=== PATIENT | male | born 1950 | race Caucasian/White ===

== ENCOUNTER → 2016-07-13 | Outpatient (CLI) | payer MEDICARE, OTHER ==
[~2016-07-13] MED LIST: ALPR.25T PO; ASCO500C14 PO; ASP81TEC PO; ATR20T PO; DESL5TAB5 PO; FLAX100031 PO; HCT25T PO; METF-380 PO; MULT1CAP27 PO; RAMI10CA PO
--- NOTE | 2016-07-15 10:27 | ECHOCARDIOGRAPHY REPORT ---
DATE OF SERVICE: 07/13/2016 ORDERING PHYSICIAN: Dr. Ruano. PRIMARY CARE PHYSICIAN: Dr. Rodriguez. CLINICAL DIAGNOSES: Aortic stenosis, cardiomegaly, hypertension. MEASUREMENTS: 1. Aortic root 2.8. 2. IVS thickness, diastolic 1.3. 3. LVPW thickness, diastolic, 1.4. 4. LV diameter, diastolic, 5. 5. Left atrium 3.9. DESCRIPTION: Two-dimensional echocardiography shows normal global left ventricular systolic function with normal regional wall motion. There is mild concentric left ventricular hypertrophy. The left ventricular ejection fraction is approximately 65%. Mitral and tricuspid valve leaflets show good leaflet excursion. The aortic valve appears to be trileaflet, and there is mild to moderate aortic valve sclerosis and calcification. Doppler imaging shows trivial mitral and tricuspid regurgitation. There is trivial aortic regurgitation. There is no evidence of significant intracardiac shunt on this transthoracic echocardiographic study. Inferior vena cava does not appear to be significantly dilated. It does seem to have inspiratory collapse. The peak pressure gradient across the aortic valve is 37 mmHg with a mean gradient of 21 mmHg and the aortic valve area is calculated to be 1.5 cm2. Pulmonary artery systolic pressure is estimated to be approximately 25 mmHg. CONCLUSIONS: 1. Aortic stenosis, mild to moderate, with a valve area of approximately 1.5 cm2 and a mean gradient across the aortic valve approximately 21 mmHg. 2. Mild concentric left ventricular hypertrophy. 3. Normal global left ventricular systolic function with an ejection fraction of approximately 65%. 4. Trivial mitral, tricuspid and aortic regurgitation. 5. Pulmonary artery systolic pressure is estimated at approximately 25 mmHg. Job ID: [id number] DocumentID: [id number] Dictated Date: 07/14/2016 16:54:12 Manager Rail Date: 07/15/2016 08:54:23 Dictated By: SILVIA RUANO MD, MA, FACP, FACC,
== END ==
LOC: CARD 13:57
PROVIDERS: ATTEND Internal Medicine Cardiovascular Disease
DX: I35.0 Nonrheumatic aortic (valve) stenosis (principal); I51.7 Cardiomegaly; I65.23 Occlusion and stenosis of bilateral carotid arteries; E11.9 Type 2 diabetes mellitus without complications; E78.4 Other hyperlipidemia; I10 Essential (primary) hypertension; E66.09 Other obesity due to excess calories
CPT/HCPCS: 93306

== ENCOUNTER → 2019-09-08 | Outpatient (CLI) | payer MEDICARE, OTHER | LOC: CARD 09:32 | PROVIDERS: ATTEND Nurse Practitioner Family | DX: I35.0 Nonrheumatic aortic (valve) stenosis (principal); I51.7 Cardiomegaly; I35.1 Nonrheumatic aortic (valve) insufficiency | CPT/HCPCS: 93306 ==

== ENCOUNTER → 2021-01-29 | Outpatient (CLI) | payer MEDICARE, OTHER | LOC: CARD 15:00 | PROVIDERS: ATTEND Nurse Practitioner | DX: I08.0 Rheumatic disorders of both mitral and aortic valves (principal) | CPT/HCPCS: 93306 ==

== ENCOUNTER 2021-04-08 10:13 | Day surgery (SDC) | payer MEDICARE, OTHER ==
[~2021-04-08] VITALS: Ht 180.3 cm; Wt 110.0 kg
[2021-04-08] VITALS (9 sets, daily range): BP systolic 141–156; BP diastolic 55–72
[2021-04-08] MEDS ORDERED: LIDOCAINE 1% INJ 20 ML VIAL ONE (10:38)
[2021-04-08] MEDS ORDERED: NS IV 1000 ML 1,000 ML ONE (10:38)
[2021-04-08] MEDS ORDERED: HEParin (CATH LAB) 2,000 ML IV ONE (10:38)
[2021-04-08] MEDS ORDERED: NS IV 1000 ML 1,000 ML IV SCH ×2 (10:45→15:15)
[2021-04-08 11:03] LABS: HEMATOCRIT 45 % (40-54); MEAN CORPUSCULAR HEMOGLOBIN 32 pg (25-34); MEAN CORPUSCULAR HGB CONC 34 g/dL (32-36); MEAN CORPUSCULAR VOLUME 95 fL (80-99); MEAN PLATELET VOLUME 10.8 fL (9.0-12.2); PLATELET COUNT 202 10^3/uL (130-400); WHITE BLOOD COUNT 5.6 10^3/uL (4.3-11.0)
[2021-04-08] MEDS ORDERED: RT-ALBUINH IH (11:10)
[2021-04-08] MEDS ORDERED: AMLO-251 PO (11:10)
[2021-04-08] MEDS ORDERED: FLUT9.9S NS (11:10)
[2021-04-08] MEDS ORDERED: CLOP75TA69 PO (11:10)
[2021-04-08] MEDS ORDERED: TIZA4CAP8 PO (11:10)
[2021-04-08] MEDS ORDERED: CALC-250 PO (11:10)
[2021-04-08] MEDS ORDERED: SERT-413 PO (11:10)
[2021-04-08] MEDS ORDERED: CETI-267 PO (11:10)
[2021-04-08 11:21] LABS: INR 0.9 (0.8-1.4); PROTHROMBIN TIME PATIENT 12.7 SEC (12.2-14.7)
[2021-04-08 11:31] LABS: ALBUMIN 4.1 GM/DL (3.2-4.5); BILIRUBIN,TOTAL 0.5 MG/DL (0.1-1.0); CALCIUM 9.3 MG/DL (8.5-10.1); CREATININE SERUM 0.98 MG/DL (0.60-1.30); POTASSIUM 4.6 MMOL/L (3.6-5.0); TOTAL PROTEIN 7.1 GM/DL (6.4-8.2)
[2021-04-08] MEDS ORDERED: fentaNYL INJ 100 MCG/2 ML AMP ONE (13:40)
[2021-04-08] MEDS ORDERED: MIDAZOLAM 5 MG/5 ML (VERSED) VIAL ONE (13:40)
--- NOTE | 2021-04-08 15:11 | Cardiac Procedure Note-CS/ASA ---
Pre-Procedure Note Pre-Op Procedure Note H&P Reviewed The H&P was reviewed, patient examined and no changes noted. Date H&P Reviewed: Apr 08, 2021 Time H&P Reviewed: 14:10 Conscious Sedation Pre-Proced Time 14:10 ASA Score 3 For ASA 3 and 4: Consider anesthesia and medical clearance. Also, for patients with a history of failed moderate sedation consider anesthesia. Airway Lungs Heart ASA score ASA 1: a normal healthy patient ASA 2: a patient with a mild systemic disease (mid diabetes, controlled hypertension, obesity ASA 3: a patient with a severe systemic disease that limits activity (angina, COPD, prior Myocardial infarction) ASA 4: a patient with an incapacitating disease that is a constant threat to life (CHF, renal failure) ASA 5: a moribund patient not expected to survive 24 hrs. (ruptured aneurysm) ASA 6: a declared brain- patient whose organs are being harvested. For emergent operations, add the letter E after the classification Mallampati Classification Grade 2 Sedation Plan Analgesia, Amnesia, Plan communicated to team members, Discussed options with patient/fam, Discussed risks with patient/fam The patient is an appropriate candidate to undergo the planned procedure, sedation, and anesthesia. The patient immediately re-assessed prior to indication. SILVIA PARRISH MD FACP FAC [facility]S Apr 08, 2021 15:11
--- NOTE | 2021-04-08 15:13 | Discharge Inst-Cardiology ---
Discharge Inst-Cardiac Discharge Medications Continued Medications: Albuterol Sulfate (Proair Hfa) 1 Puff Puff 2 PUFF IH PRN, EA 1 PUFF = 90 MCG Alprazolam (Xanax) 0.25 Mg Tablet 1 TAB PO QID PRN TAKES FOR ANXIETY CONTROL Amlodipine Besylate (Amlodipine Besylate) 10 Mg Tablet 10 MG PO DAILY, TAB Aspirin (Aspirin Ec 81 Mg) 81 Mg Tabec 81 MG PO DAILY Atorvastatin (Lipitor 20MG) 20 Mg Tablet 20 MG PO HS Cetirizine HCl (Zyrtec) 10 Mg Tab.rapdis 10 MG PO DAILY, TAB Cholecalciferol (Vitamin D3) (Vitamin D3) 125 Mcg Tablet 125 MCG PO DAILY, TAB Clopidogrel Bisulfate (Plavix) 75 Mg Tablet 75 MG PO DAILY, TAB Fluticasone Propionate (Flonase Allergy Relief) 9.9 Ml Osteen.susp 2 SPRAY NS DAILY PRN for PRN Multivitamins (Multivitamins) 1 Each Capsule 1 EACH PO DAILY Ramipril (Ramipril) 10 Mg Capsule 10 MG PO BID Sertraline HCl (Sertraline HCl) 50 Mg Tablet 50 MG PO DAILY, TAB Tizanidine HCl (Tizanidine HCl) 4 Mg Capsule 4 MG PO HS, CAP Discontinued Medications: Metformin Hcl (Metformin 1000 Mg) 1,000 Mg Tablet 1000 MG PO BID WITH MEALS Patient Instructions Patient Instructions: Resume METFORMIN at previous home dose beginning on the morning of 04/11/21 SILVIA PARRISH MD FACP [facility] Apr 08, 2021 15:13
[2021-04-08] MEDS ORDERED: PATIENT MAY USE OWN MEDS, ALL PO SCH (15:15)
--- NOTE | 2021-04-08 15:24 | Discharge Inst-Post CATH ---
Discharge Inst-CATH/EP Post Cardiac Cath/EP D/C Inst Follow Up/Plan F/u with Dr Ruano in 1-2 weeks ACTIVITY * Go Home directly and rest. * Limit activity of the leg (or wrist if it was used) for 7 days including aerobics, swimming, jogging, bicycling, etc. * Restrict stair-climbing for 7 days if possible, if not, climb up with your non-cath leg, then bring together on the same step. * Avoid lifting, pushing, pulling or excessive movement of the affected extremity for 7 days. * Customary sexual activity may be resumed after 2 days-use caution not to use a position that strains or causes pain to the affected extremity. * No driving for 24 hours. * NO SMOKING. * Avoid straining for bowel movements for 7 days. * Gentle walking on level ground is allowed. * Returning to work will depend on the type of procedure and the results. Your doctor will discuss this with you. CALL YOUR DOCTOR FOR ANY OF THE FOLLOWING: *If bleeding from the puncture site occurs- Apply gentle pressure to site with clean cloth and call your doctor or EMS. * If a knot or lump forms under the skin, increases in size, or causes pain. * If bruising appears to be worsening or moving further down your leg instead of disappearing. * Temperature above 101 F. CARE OF YOUR GROIN INCISION; * Bruising or purple discoloration of the skin near the puncture site is common. * You may shower only, no bathtub bathing for 5 days. Be careful to avoid slipping as your leg may feel stiff. * If a closure device was used on your femoral artery, please see the attached guide regarding care of the device and your leg. * Leave dressing on FOR 24 hours. CARE OF YOUR WRIST INCISION; * Bruising or purple discoloration of the skin near the puncture site is common. * You may shower. * DO NOT submerge wrist. * Leave dressing on FOR 24 hours. SILVIA RUANO MD FACP FAC CCDS Apr 08, 2021 15:24
--- NOTE | 2021-04-08 17:46 | CARDIAC CATHETERIZATION ---
DATE OF SERVICE: 04/08/2021 CARDIAC CATHETERIZATION REPORT The patient is a 70-year-old gentleman who is known to have severe carotid arterial disease, for which he is awaiting intervention in [place], [place], with Dr. Collier. Because of his history of coronary artery disease and aortic stenosis, anesthesia had advised cardiac catheterization prior to carotid intervention. The procedure was carried out today after having obtained an informed consent. DESCRIPTION OF PROCEDURE: He was brought to the cardiac catheterization laboratory in a fasting state. Right groin was prepared and draped in the usual sterile fashion. Lidocaine 1% was used for local anesthesia. Modified Seldinger technique was used to advance a 5-Bangladeshi sheath in the right femoral artery and a 7-Bangladeshi sheath into the right femoral vein. A 7-Bangladeshi [place]dy catheter was used to carry out right heart catheterization and to measure oxygen saturation in the various right heart chambers. The [place]-Cyndy catheter was then removed. We used a 5-Bangladeshi pigtail catheter to carry out left heart catheterization. Pullback was performed. The catheter was then removed. We carried out coronary angiography using JL4 catheter for the left coronary system and 5-Bangladeshi JR4 catheter was used for right coronary system. Angiography of the right femoral artery was carried out through the sheath. Mynx was used to achieve arterial hemostasis. Manual pressure was used to achieve venous hemostasis. He tolerated the procedure well. HEMODYNAMICS: Pulmonary artery pressure was 45/18 with a mean of 25 mmHg. Mean pulmonary wedge pressure was 19 mmHg. Mean right atrial pressure was 12 mmHg. Right ventricular pressure was 49/13. Left ventricular end-diastolic pressure was 26 mmHg. There was approximately 15 to 20 mm pressure gradient on pullback across the aortic valve. Aortic valve area was calculated to be approximately 1.28 cm2. Cardiac output by thermodilution was 4.23 with a cardiac index of 1.85. Pulmonary vascular resistance was 1.33 Wood units. LEFT VENTRICULAR ANGIOGRAPHY: Left ventricular angiography was carried out in the right anterior oblique projection. Global left ventricular systolic function is well preserved. Left ventricular ejection fraction is approximately 50% to 55%. There was mild to moderate catheter-induced mitral regurgitation. CORONARY ANGIOGRAPHY: Left main coronary artery, left anterior descending, left circumflex and right coronary arteries exhibit mild coronary plaque. There does not appear to be significant obstructive coronary artery disease. CONCLUSIONS: 1. Mild coronary artery disease. 2. Mild pulmonary hypertension. 3. Moderate aortic stenosis with a valve area approximately 1.28 cm2 and xtat-up-abxr pressure gradient of 20 mmHg. DISCUSSION AND RECOMMENDATIONS: Based on the results of the study, cardiac risk for noncardiac surgery is estimated to be intermediate. This has been reviewed with him and his family. The results of the cardiac catheterization are being forwarded to the anesthesiology service at [facility] in [place], [place]. Job ID: [id number] DocumentID: [id number] Dictated Date: 04/08/2021 15:22:43 Fruit Pitter Date: 04/08/2021 17:45:42 Dictated By: SILVIA PARRISH MD, MA, FACP, FACC,
== END 2021-04-08 18:30 | disposition home or self-care (01) ==
LOC: CATH 10:13
PROVIDERS: ATTEND Internal Medicine Cardiovascular Disease
DX: I25.10 Atherosclerotic heart disease of native coronary artery without angina pectoris (principal); I27.20 Pulmonary hypertension, unspecified; I35.0 Nonrheumatic aortic (valve) stenosis; I65.23 Occlusion and stenosis of bilateral carotid arteries; G47.33 Obstructive sleep apnea (adult) (pediatric); I11.9 Hypertensive heart disease without heart failure; E11.9 Type 2 diabetes mellitus without complications; E66.9 Obesity, unspecified; Z68.33 Body mass index [BMI] 33.0-33.9, adult; Z87.891 Personal history of nicotine dependence; Z79.84 Long term (current) use of oral hypoglycemic drugs; Z79.899 Other long term (current) drug therapy; Z79.82 Long term (current) use of aspirin
CPT/HCPCS: 80053; 80061; 85027; 85610; 85730; 87081; 93460; C1894 ×2; 36415

== ENCOUNTER 2021-10-01 05:57 | Outpatient (CLI) | payer MEDICARE, OTHER ==
[~2021-10-01] VITALS: Ht 180.3 cm; Wt 109.1 kg
[~2021-10-01 05:57] MED LIST changes: +AMLO-251 PO; +CALC-250 PO; +CETI-267 PO; +CLOP75TA69 PO; +FLUT9.9S NS; +RT-ALBUINH IH; +SERT-413 PO; +TIZA4CAP8 PO
[2021-10-06] MEDS ORDERED: TRZ50T PO (10:01)
[2021-10-06] MEDS ORDERED: METF-399 PO (10:01)
== END 2021-10-06 10:08 | disposition home or self-care (01) ==
LOC: PREOP 05:57
PROVIDERS: ATTEND Orthopaedic Surgery
DX: Z01.818 Encounter for other preprocedural examination (principal)

== ENCOUNTER 2021-10-08 07:21 | Day surgery (SDC) | payer MEDICARE, OTHER ==
--- NOTE | 2021-09-30 20:32 | HISTORY AND PHYSICAL ---
DATE OF SERVICE: ADMISSION HISTORY AND PHYSICAL This will be for outpatient surgery on 10/08/2021 for right rotator cuff repair. HISTORY OF PRESENT ILLNESS: The patient is a 71-year-old right hand dominant gentleman who had previously undergone right rotator cuff repair and has been doing well until he fell in the spring. Since then, he has had weakness and activity limitations in the shoulder on the right arm, he reports pain. An MRI revealed a large supraspinatus and infraspinatus tear. Due to functional impairment and failure to improve with conservative measures, the patient elected to proceed with surgical intervention. REVIEW OF SYSTEMS: No chest pain, no shortness of breath, no dysuria. PAST MEDICAL HISTORY: Aortic stenosis, diabetes mellitus, basal cell carcinoma of the ear, hypercholesterolemia, hyperlipidemia, obesity, coronary artery disease, cardiomegaly, orthostatic hypotension, RACHEL. PAST SURGICAL HISTORY: Left total knee arthroplasty, right rotator cuff and right knee scope. FAMILY HISTORY: Significant for diabetes and stroke. PRIMARY CARE PROVIDER: Dr. Rodriguez. MEDICATIONS: Vitamin D, Ventolin, tizanidine, sertraline, Flonase, atorvastatin, amlodipine, metformin, aspirin, alprazolam, ramipril, Zyrtec, Plavix. ALLERGIES: No known drug allergies. SOCIAL HISTORY: The patient is a former tobacco smoker. Denies alcohol use. PHYSICAL EXAMINATION: GENERAL: The patient is a well-developed, well-nourished, in no acute distress. HEENT: Normocephalic, atraumatic. Pupils are equal, round and reactive to light. Oropharynx is clear. NECK: Supple, no lymphadenopathy. LUNGS: Clear to auscultation bilaterally. HEART: Regular rate and rhythm. ABDOMEN: Soft, nontender, nondistended. EXTREMITIES: Right shoulder demonstrates active forward elevation, external and internal rotation, which is symmetric to the contralateral side, but he has marked weakness with abduction and external rotation and pain is elicited with resistance. IMPRESSION: Right rotator cuff tear. PLAN: Right shoulder arthroscopic acromioplasty and open rotator cuff repair. The risks, benefits, options, ramifications and recovery have been discussed at length with the patient. He understands and wishes to proceed. Job ID: [id number] DocumentID: [id number] Dictated Date: 09/23/2021 11:15:44 Hydraulic Mechanic Date: 09/23/2021 11:27:28 Dictated By: SULTANA AGRAWAL MD
[~2021-10-08] VITALS: Ht 180.3 cm; Wt 109.1 kg
[2021-10-08] VITALS (10 sets, daily range): BP systolic 118–156; BP diastolic 59–89
[~2021-10-08 07:21] MED LIST changes: +METF-399 PO; +TRZ50T PO
[2021-10-08] MEDS ORDERED: oxyCODONE/APAP 5/325MG (PERCOCET 5) TABLET PO PRN (07:30)
--- NOTE | 2021-10-08 07:30 | Progress Note-Pre Operative ---
Pre-Operative Progress Note H&P Reviewed The H&P was reviewed, patient examined and no changes noted. Date Seen by Provider: Oct 08, 2021 Time Seen by Provider: 07:30 Date H&P Reviewed: Oct 08, 2021 Time H&P Reviewed: 07:11 Pre-Operative Diagnosis: right rotator cuff tear SULTANA AGRAWAL MD Oct 08, 2021 07:30
--- NOTE | 2021-10-08 07:31 | Progress Note-Post Operative ---
Post-Operative Progess Note Surgeon (s)/Commercial Engineer (s) Surgeon SULTANA AGRAWAL MD Commercial Engineer: Edwin Gan Pre-Operative Diagnosis right rotator cuff tear Post-Operative Diagnosis right rotator cuff tear Procedure & Operative Findings Date of Procedure 10/08/21 Procedure Performed/Findings right shoulder arthroscopic acromiplasty and open rotator cuff tear Anesthesia Type GETA Estimated Blood Loss Estimated blood loss (mL): minimal Specimens/Packing Specimens Removed none Packing: none SULTANA AGRAWAL MD Oct 08, 2021 07:31
[2021-10-08] MEDS ORDERED: ceFAZolin 2 GM IV Premixed 50 ML IV ONE (07:45)
[2021-10-08] MEDS: LACTATED RINGERS 1,000 ML IV PRN ×2 (08:06→09:33)
[2021-10-08] MEDS ORDERED: LIDOCAINE PF 2% 5 ML (XYLOCAINE) VIAL ONE (08:11)
[2021-10-08] MEDS ORDERED: MIDAZOLAM 2 MG/2 ML (VERSED) VIAL ONE (08:11)
[2021-10-08] MEDS ORDERED: fentaNYL INJ 100 MCG/2 ML AMP ONE (08:11)
[2021-10-08] MEDS ORDERED: proPOfol 200 MG/20 ML (DIPRIVAN) VIAL IV ONE (08:11)
[2021-10-08] MEDS ORDERED: ONDANSETRON 4 MG/2 ML (SDV) Z0FRAN ONE (08:11)
[2021-10-08] MEDS ORDERED: SEVOFLURANE (ULTANE) 15 ML INHAL SOLN ONE (08:11)
[2021-10-08] MEDS ORDERED: morphine PF (DURAMORPH) 10 MG/10 ML AMP ONE (08:12)
[2021-10-08] MEDS ORDERED: BUPIVACAINE 0.25% 30 ML (SENSORCAINE) VIAL ONE (08:12)
[2021-10-08] MEDS ORDERED: ISOFLURANE (FORANE) 15 ML/15 MIN INHALATION ONE (09:08)
[2021-10-08] MEDS ORDERED: SUCCINYLCHOLINE INJ 100 MG/5 ML SYR/VIAL ONE (09:08)
[2021-10-08] MEDS ORDERED: ROCURONIUM 50 MG/5 ML (ZEMURON) VIAL IV ONE (09:08)
[2021-10-08] MEDS ORDERED: PHENYLEPHRINE 100 MCG/ML 10 ML (ANESTHESIA) SYR ONE (09:20)
[2021-10-08] MEDS ORDERED: morphine INJ 10 MG/ML 1ML (SYR OR VIAL) IVP ONE (10:00)
[2021-10-08] MEDS ORDERED: fentaNYL INJ 100 MCG/2 ML AMP IVP ONE (10:00)
[2021-10-08] MEDS ORDERED: MEPERIDINE (DEMEROL) INJ 50 MG/ML IVP ONE (10:00)
[2021-10-08] MEDS ORDERED: ONDANSETRON 4 MG/2 ML (SDV) Z0FRAN IVP PRN (10:00)
--- NOTE | 2021-10-08 10:02 | Anesthesia-General Post-Op ---
General Patient Condition Mental Status/LOC: Same as Preop Cardiovascular: Satisfactory Nausea/Vomiting: Absent Respiratory: Satisfactory Pain: Controlled Complications: Absent Post Op Complications Complications None Follow Up Care/Instructions Patient Instructions None needed. Anesthesia/Patient Condition Patient Condition Patient is doing well, no complaints, stable vital signs, no apparent adverse anesthesia problems. No complications reported per nursing. JOSE FRANCISCO BURTON CRNA Oct 08, 2021 10:02
--- NOTE | 2021-10-08 17:29 | OPERATIVE REPORT ---
DATE OF SERVICE: 10/08/2021 PREOPERATIVE DIAGNOSIS: Chronic right rotator cuff tear. POSTOPERATIVE DIAGNOSIS: Chronic right rotator cuff tear. PROCEDURE: 1. Right shoulder open rotator cuff repair. 2. Right shoulder arthroscopic acromioplasty. SURGEON: Amrit Agrawal MD COIL WINDER HAND: Edwin Gan, who assisted throughout the procedure and closed the incisions. ANESTHESIA: General endotracheal by Edwin Edwards CRNA. ESTIMATED BLOOD LOSS: Minimal. DRAINS: None. COMPLICATIONS: None. POSTOPERATIVE PLAN: Passive range of motion with sling wear for 4 weeks. The patient was transferred to the recovery room awake and in stable condition. STATEMENT OF MEDICAL NECESSITY: The patient is a 71-year-old right hand dominant gentleman who underwent a rotator cuff tear in the remote past, had been doing well until he had a fall and had weakness since then. An MRI revealed a large retracted rotator cuff tear. The patient tried activity modifications without relief due to functional impairment and failure to improve with conservative measures. The patient elected to proceed with surgical intervention. Examination under anesthesia demonstrated forward elevation of 170 degrees, external rotation of 80 degrees and internal rotation of 70 degrees. Arthroscopic findings, the biceps anchor was absent. There was no significant glenoid or humeral head articular wear. The labrum otherwise was intact. The rotator cuff demonstrated a large retracted atrophied supraspinatus tear with retracted infraspinatus tear with good tissue quality. DESCRIPTION OF PROCEDURE: After risks and benefits of procedure were discussed and questions were answered, an informed consent was signed and placed on chart, the operative site was confirmed in the preoperative holding area initialed by the surgeon. The patient was then transferred to the operating room. After adequate levels of general endotracheal anesthetic were obtained, a timeout was called, confirming the operative site. Examination under anesthesia was performed with above findings noted. The right shoulder and upper extremity were prepped and draped in the usual sterile fashion. The shoulder joint was injected with 20 mL fluid and standard posterior portal was placed. A diagnostic arthroscopy was carried out with the above findings noted. The scope was redirected into the subacromial space. Lateral portal was created. Bursectomy was performed and the acromion was planed to a flat type 1 acromion. The lateral portal was then extended using the previous incision site. The deltoid was split in line with its fibers leaving attached the acromion for later reapproximation. The infraspinatus portion of the rotator cuff tear was mobilized and brought superiorly and laterally. This provided good repair for the infraspinatus using a modified Jomar-Vinny technique using a corkscrew anchor. The supraspinatus was atrophied and irreparable. The wound was copiously irrigated. The deltoid was repaired in a [id number]-[id number] fashion using #2 FiberWire in pahsma-al-nbzke interrupted fashion. The wound was further irrigated, 3-0 Vicryl was used to reapproximate subcutaneous tissue. Skin was closed with 4-0 nylon running alternating horizontal mattress fashion. The portal site was closed with 4-0 nylon in simple interrupted fashion. Shoulder joint was injected with Duramorph. The incision and portal sites were infiltrated with plain Marcaine and soft dressing and sling were applied and the patient was transferred to the recovery room awake and in stable condition. Job ID: [id number] DocumentID: [id number] Dictated Date: 10/08/2021 09:56:50 Surgical Nurse Practitioner Date: 10/08/2021 17:28:52 Dictated By: AMRIT AGRAWAL MD
== END 2021-10-08 12:05 | disposition home or self-care (01) ==
LOC: SDC 07:21
PROVIDERS: ATTEND Orthopaedic Surgery
DX: M75.101 Unspecified rotator cuff tear or rupture of right shoulder, not specified as traumatic (principal)
CPT/HCPCS: 23412; 29822; 29826; 82947; 87081; C1713

== ENCOUNTER 2022-01-29 09:16 | Observation (INO) | payer MEDICARE, OTHER ==
[~2022-01-29] VITALS: Ht 180.3 cm; Wt 103.8 kg
[~2022-01-29 09:16] MED LIST changes: +ALBU8.5H6 IH; -RT-ALBUINH IH
[2022-01-29 09:30] VITALS: BP 115/94
[2022-01-29] MEDS ORDERED: BISACODYL 10 MG SUPP (DULCOLAX) PR PRN (09:30)
[2022-01-29] MEDS ORDERED: ONDANSETRON 4 MG/2 ML (SDV) Z0FRAN IV PRN (09:30)
[2022-01-29] MEDS ORDERED: MILK OF MAGNESIA 400 MG/5 ML 30 ML UDC PO PRN (09:30)
[2022-01-29] MEDS ORDERED: CALCIUM CARBONATE 500 MG (TUMS) TAB.CHEW PO PRN (09:30)
[2022-01-29] MEDS ORDERED: ANTACID SUSP 30 ML UDC (MYLANTA) PO PRN (09:30)
[2022-01-29] MEDS ORDERED: polyethylene glycoL POWDER 17 GM (MIRALAX) PACK PO PRN (09:30)
[2022-01-29] MEDS ORDERED: LACTULOSE SYRUP 10GM/15ML (ENULOSE) 30ML UDC PO PRN (09:30)
[2022-01-29] MEDS ORDERED: diphenhydrAMINE 25 MG TAB (BENADRYL) PO PRN (09:30)
[2022-01-29] MEDS ORDERED: ASPIRIN 81 MG CHEW (CHILDREN'S ASA) PO NR (09:30)
[2022-01-29] MEDS ORDERED: diphenhydrAMINE 50 MG/ML INJ (BENADRYL) IVP PRN (09:30)
[2022-01-29] MEDS ORDERED: ONDANSETRON 4 MG (ZOFRAN) ORAL DISSOLVE TAB PO PRN (09:30)
[2022-01-29 09:44] VITALS: BP 115/94
[2022-01-29] MEDS ORDERED: ENOXAPARIN 40 MG/0.4 ML (LOVENOX) SYR SC NR (10:00)
[2022-01-29 10:15] VITALS: BP 121/107
[2022-01-29 11:55] VITALS: BP 122/89
[2022-01-29] MEDS ORDERED: meTOprolol TARTRATE 25 MG (LOPRESSOR) TABLET PO NR (12:15)
[2022-01-29] MEDS ORDERED: TIZA-186 PO (14:25)
[2022-01-29] MEDS ORDERED: CLOP75TA28 PO (14:25)
[2022-01-29] MEDS ORDERED: ALPR0.5T7 PO (14:25)
[2022-01-29] MEDS ORDERED: ALBU18HF2 INH (14:25)
[2022-01-29] MEDS ORDERED: FURO-125 PO (14:25)
[2022-01-29] MEDS ORDERED: ATOR20TA66 PO (14:25)
[2022-01-29] MEDS ORDERED: RAMI10CA69 PO (14:25)
[2022-01-29] MEDS ORDERED: CHOL200074 PO (14:25)
[2022-01-29] MEDS ORDERED: MULT-1136 PO (14:25)
--- NOTE | 2022-01-29 15:49 | Consultation-Cardiology ---
HPI-Cardiology Cardiology Consultation Date of Consultation 01/29/22 Date of Admission 01/29/22 Time Seen by Provider: 15:30 HPI Sagar is a 71 yo male with hx of severe aortic stenosis and T2DM who was admitted from [facility] with difficulty breathing. His symptoms began 4 weeks ago when he developed a dry cough. His PCP, Dr. Rodriguez, did a CXR which showed potential walking pneumonia. He was on 2 different antibiotics without relief. He began being short of breath, especially at night. On Wednesday, he went to [facility]. They added a steroid, which also did not provide much relief. He had been using albuterol Q4H at home and a CPAP at night, neither of which seemed to help his breathing. Dr. Rodriguez scheduled him for a COVID test and pulmonary function test today, since the steroids were not helping. Last night, the pt was SOB despite trying to sleep in his recliner with a CPAP. He then decided to go to [facility]. EKG revealed new onset AFib with RVR, he was sent here for admission to cardiac step-down. While here, his EKG shows AFib with RVR, borderline R axis deviation, and intraventricular conduction delay. His troponin is 0.244. He sees Dr. Ruano for cardiology. He had a cardiac catheterization in March that showed mild CAD, mild pulmonary HTN, and moderate aortic stenosis. He is currently still SOB and has iWOB, but denies CP and syncope. He has had increased ankle edema recently. He does not wear O2 at home. Dr. Felton: I had the pleasure of seeing Sagar on the cardiac stepdown unit at in [place], [place] this afternoon. He normally follows with one of my partners, Dr. Ruano. He has a history of mild coronary artery disease detected at cardiac catheterization in early 2021, right carotid stenosis status post stenting in April 2021, aortic stenosis with regurgitation, mitral regurgitation, hypertension, hyperlipidemia, and type 2 diabetes mellitus among other issues. For the past several days he has noticed increasing dyspnea on exertion as well as chest tightness. He has also had paroxysmal nocturnal dyspnea and orthopnea. The nocturnal symptoms progressed to the point that he needed to sleep sitting up in a chair using his CPAP. However, last evening, despite sitting up in a chair with his CPAP, he could not get enough air and he went to [facility] emergency room for further evaluation. He was found to be in atrial fibrillation with a rapid ventricular rate and was subsequently transferred to our hospital for further evaluation. When I saw him, he was still fairly short of breath but his chest pressure had improved. He has been unsteady on his feet but denies lightheadedness or syncope. He denies palpitations or lower extremity edema. Because of the atrial fibrillation, a cardiology consultation was requested. Certain portions of this document may have been dictated utilizing voice recognition technology. Inherent to this technology, typographical and grammatical errors may exist. As much as I am diligent to identify and correct these mistakes, some errors may remain in the document. Home Medications & Allergies Allergies: Coded Allergies: No Known Drug Allergies (Unverified , 10/06/21) [id number]-Fgrslu-Ttujhw Hx Patient Social History Marital Status: Smoking Status: Former Smoker (quit 10 years ago) Recent Hopitalizations: No Have you traveled recently?: No Alcohol Use?: No Immunizations Up To Date Date of Influenza Vaccine: Jan 12, 2022 Review of Systems-General Review of Systems Constitutional: No fever; weakness EENTM: No nose congestion, No throat pain Respiratory: cough, dyspnea on exertion, orthopnea, short of breath, wheezing Cardiovascular: No chest pain; edema; No palpitations, No syncope Gastrointestinal: No constipation, No diarrhea, No nausea, No vomiting Genitourinary: no symptoms reported Musculoskeletal: no symptoms reported Skin: dryness Psychiatric/Neurological: No Symptoms Reported Reviewed Test Results Reviewed Test Results Lab Laboratory Tests 01/29/22 09:52: Troponin I 0.244H Radiology Imaging from [facility] showed bilateral pleural effusions and pulmonary congestion ECHOCARDIOGRAM (01/29/2022): 1. This is a technically difficult study due to poor image quality secondary to patient's body habitus. 2. Left ventricle: The left ventricle is mildly dilated. There is mild concentric hypertrophy. Systolic function is mildly reduced. The estimated ejection fraction is 45-50%. Mild diffuse hypokinesis. The left ventricular diastolic function is indeterminate due to the atrial fibrillation. 3. Left atrium: The left atrium is mildly dilated with a volume index ranging from 36-40 mL/m. 4. Right atrium: The right atrium is mildly dilated with an area of 20 cm. 5. Mitral valve: There is moderate to severe mitral regurgitation with evidence of flow reversal in the pulmonary veins. 6. Aortic valve: There is moderate aortic stenosis with a mean gradient of 30 mmHg, a peak gradient of 50 mmHg, a peak velocity of 3.5 m/s and a calculated aortic valve area of 1 cm. There is moderate aortic regurgitation with a pressure half-time of 199 ms. 7. Tricuspid valve: There is mild-moderate tricuspid regurgitation. 8. Pericardium, extracardiac: A trivial pericardial effusion is identified. 9. Inferior vena cava: The vessel is dilated. The respirophasic diameter changes are blunted (less than 50%). These findings are consistent with markedly elevated right atrial pressure (15 mmHg). 10. Pulmonary arteries: The estimated pulmonary artery systolic pressure is 44 mmHg assuming a right atrial pressure of 15 mmHg. ECG Impression ECG Comment Atrial fibrillation with nonspecific intraventricular conduction delay, frequent premature ventricular complexes versus aberrancy, poor R wave progression and nonspecific ST-T wave changes. Physical Exam Physical Exam Vital Signs Vital Signs - First Documented 01/29/22 09:30 Temp 36.5 Pulse 112 Resp 20 B/P (MAP) 115/94 (101) Pulse Ox 94 O2 Delivery Nasal Cannula O2 Flow Rate 2.00 Capillary Refill : Height, Weight, BMI Height: '" Weight: lbs. oz. kg; 33.96 BMI Method: General Appearance: Mild Distress, Obese HEENT: PERRL/EOMI, Normal ENT Inspection Neck: Normal Inspection, Supple Respiratory: Accessory Muscle Use, Decreased Breath Sounds, Wheezing Cardiovascular: Systolic Murmur, Irregularly Irregular Gastrointestinal: Non Tender, Distended Extremity: Non Tender, Pedal Edema Neurologic/Psychiatric: Alert, Oriented x3, Normal Mood/Affect Skin: Normal Color, Warm/Dry Comments Dr. Felton: General: Alert. No acute distress. Well nourished and appears stated age. Eye: Extraocular movements are intact. Conjunctivae are clear. There are no xanthelasma. HENT: Normocephalic. Atraumatic. Carotid pulsations 2/2 without bruits. Neck: Jugular venous pressure does not appear elevated. No thyromegaly appreciated. Respiratory: Lungs have decreased breath sounds at the bases bilaterally. Respirations are non-labored. Breath sounds are equal. Symmetrical chest wall expansion. Cardiovascular: Normal rate. Irregular rhythm. 2/6 systolic ejection murmur. No gallop. Point of maximal impulse is not appear displaced. Good pulses equal in all extremities. No edema. Gastrointestinal: Soft. Normal bowel sounds. Skin: Skin turgor is normal. There is no pallor. Musculoskeletal: No kyphosis or scoliosis appreciated. Neurologic: Alert and oriented to person, place, time. Cranial nerves 3-12 appear grossly intact. The patient has good motor tone strength in the upper and lower extremities bilaterally. Psychiatric: Cooperative. Appropriate mood & affect. A/P-Cardiology Admission Diagnosis (1) Acute HFrEF (heart failure with reduced ejection fraction) Assessment & Plan: Will start IV lasix and beta soy (2) Troponin level elevated Assessment & Plan: Most likely due to T2 NSTEMI Will start aspirin, beta soy, and continue on a statin (3) Nonrheumatic aortic valve stenosis with regurgitation Assessment & Plan: Moderate, probably not contributing to current symptoms but will need to be followed (4) Primary hypertension Assessment & Plan: Starting metoprolol (5) Mixed hyperlipidemia Assessment & Plan: Continue atorvastatin (6) Carotid stenosis, right Assessment & Plan: Change clopidogrel to aspirin Assessment/Plan Dr. Felton: CHF, acute, with reduced ejection fraction. He does not report any previous history of heart failure. He has mild left ventricular systolic dysfunction as noted above. His ejection fraction is above 40%. Some of this could be related to tachycardia from the atrial fibrillation. I will change his amlodipine and ramipril over to metoprolol tartrate. I will start him on intravenous furosemide. I will obtain a follow-up chest x-ray in the morning. If we can get his heart failure under control, we may be able to have him ready for discharge in the next 24-48 hours. Atrial fibrillation, paroxysmal. This is a new diagnosis for the patient. Exact duration unknown since the patient does not have palpitations. Based on his symptoms, this may have started about 4 days ago. He had tachycardia with this. I have started him on beta-soy and I will increase the dose as tolerated by his blood pressure. I will start him on rivaroxaban for stroke prophylaxis. Assuming we can get his heart rate down below 110 bpm, we can probably get him discharged home and have him return for an outpatient cardioversion in approximately 30 days after appropriate length of anticoagulation. Abnormal troponin level. He has mild elevation of his troponin level but had a cardiac catheterization earlier this year that showed mild coronary artery dise ase. I suspect this is a type II non-ST elevation myocardial infarction secondary to the atrial fibrillation with rapid ventricular rate and the acute heart failure resulting in supply/demand mismatch. I will start him on low strength aspirin and restart his statin medication. Since he had a cardiac catheterization earlier this year, there is no indication for an ischemic evalua tion at this time. Aortic stenosis with regurgitation. Both of these are in the moderate range and should not necessarily be causing symptoms but will need to be followed longitudinally. Mitral regurgitation. This appears to be moderate to severe. This could be contributing to his heart failure symptoms. This may need to be followed a little bit more closely than the aortic valve disease. Right carotid stenosis. He had a right carotid stent earlier this year and was placed on clopidogrel. Since he will be on rivaroxaban for the atrial fibrillation, I will change the clopidogrel over to aspirin which should be slightly less likely to cause hemorrhagic side effects than the combination of rivaroxaban with clopidogrel. Essential hypertension. He was taking amlodipine and ramipril at home. I will change these over to metoprolol due to the atrial fibrillation. Mixed hyperlipidemia. Continue statin medication. Type 2 diabetes mellitus. This will be managed by the hospitalist. Supervisory-Addendum Brief Verification & Attestation Participated in pt care: history, MDM, physical Personally performed: exam, history, MDM Care discussed with: Medical Student Procedures: n/a Results interpretation: Verified all documentation I personally performed all critical aspects of the history, physical and impression and plan independently of the medical student and made my own documentation as above. ASAF RIDDLE Jan 29, 2022 15:49 LETITIA FELTON JR, MD Jan 29, 2022 16:10
[2022-01-29 16:00] VITALS: BP 142/96
[2022-01-29] MEDS ORDERED: FUROSEMIDE 40 MG/4 ML INJ (LASIX) IVP NR (16:00)
[2022-01-29] MEDS: RIVAROXABAN 20 MG TABLET (XARELTO) PO SCH (17:20)
[2022-01-29] MEDS ORDERED: meTOprolol TARTRATE 50 MG (LOPRESSOR) TAB ONE (17:53)
[2022-01-29] MEDS ORDERED: meTOprolol TARTRATE 25 MG (LOPRESSOR) TABLET ONE (17:59)
[2022-01-29] MEDS: meTOprolol TARTRATE 25 MG (LOPRESSOR) TABLET PO SCH (18:00)
--- NOTE | 2022-01-29 18:17 | History & Physical-Hospitalist ---
History of Present Illness HPI/Chief Complaint Sagar Rosenthal is a 71 year old male with PMH HTN, T2DM, HLD, carotid stenosis, aortic stenosis, CAD, who presented to the [facility] with shortness of breath. He reports dyspnea worse with exertion. He has also had chest tightness. He has had a dry cough. He has had leg swelling. He also reports palpitations. He denies fevers and chills. He denies abdominal pain, nausea, vomiting, and diarrhea. He has been compliant with his medications. He has been having symptoms for the past few weeks. He follows with Dr. Rodriguez. Source: patient Exam Limitations: no limitations Date Seen 01/29/22 Time Seen by a Provider: 11:00 Attending Physician Gilmar Rodriguez DO PCP Admitting Physician: Elda Ascencio MD Attending Physician: Elda Ascencio MD Referring Physician Date of Admission Jan 29, 2022 at 09:22 Home Medications & Allergies Home Medications Reviewed patient Home Medication Reconciliation performed by pharmacy medication reconciliations medical coding technician and/or nursing. Patients Allergies have been reviewed. Allergies Allergies Coded Allergies No Known Drug Allergies (Unverified10/06/21) Past Aodmmim-Cwowgi-Ihfoba Hx Patient Social History Marrital Status: Tobacco Use?: No Smoking Status: Former Smoker (quit 10 years ago) Substance use?: No Alcohol Use?: No Pt feels they are or have been: No Immunizations Up To Date Date of Influenza Vaccine: Jan 12, 2022 First/Initial COVID19 Vaccinat: 2020 Seasonal Allergies Seasonal Allergies: Yes Current Status Advance Directives: No Communicates: Verbally Primary Language: Swiss Preferred Spoken Language: Swiss Is interpretation needed?: No Implanted or Applied Medical D: None Past Medical History Sleep Apnea Currently Using CPAP: No Currently Using BIPAP: No High Cholesterol, Hypertension, Hypotension Sexually Transmitted Disease: No Arthritis Cataract Blood Disorders: No Family Medical History No Pertinent Family Hx Review of Systems Constitutional: weakness EENTM: no symptoms reported Respiratory: cough, dyspnea on exertion, short of breath Cardiovascular: palpitations Gastrointestinal: no symptoms reported Physical Exam Physical Exam Vital Signs Vital Signs - First Documented 01/29/22 09:30 Temp 36.5 Pulse 112 Resp 20 B/P (MAP) 115/94 (101) Pulse Ox 94 O2 Delivery Nasal Cannula O2 Flow Rate 2.00 Capillary Refill : Height, Weight, BMI Height: '" Weight: lbs. oz. kg; 33.96 BMI Method: General Appearance: No Apparent Distress, Obese HEENT: PERRL/EOMI, Pharynx Normal Neck: Normal Inspection, Supple Respiratory: Chest Non Tender, No Respiratory Distress, Decreased Breath Sounds, Rhonci Cardiovascular: Irregularly Irregular, Tachycardia Gastrointestinal: Normal Bowel Sounds, Non Tender, Soft Extremity: Normal Inspection, Pedal Edema Neurologic/Psychiatric: Alert, Normal Mood/Affect Skin: Normal Color, Warm/Dry Results Results/Procedures Labs Patient resulted labs reviewed. Assessment/Plan Admission Diagnosis Chest pain Admission Status: Observation Assessment and Plan Paroxysmal atrial fibrillation, new onset Cardiology consulted Started on Metoprolol and Xarelto Chest pain Elevated troponin CAD Likely type II GA Heart cath with mild CAD earlier this year Monitor Acute on chronic HFpEF Aortic stenosis Echo with EF 45-50% Moderate aortic stenosis Lasix HTN Metoprolol HLD Statin T2DM Sliding scale insulin DVT prophylaxis: already starting therapeutic anticoagulation Diagnosis/Problems Diagnosis/Problems (1) Chest pain Status: Acute (2) New onset atrial fibrillation Status: Acute (3) Acute on chronic heart failure with preserved ejection fraction (HFpEF) Status: Acute (4) NSTEMI (non-ST elevation myocardial infarction) Status: Acute (5) Elevated troponin Status: Acute (6) CAD (coronary artery disease) Status: Chronic (7) Aortic stenosis Status: Chronic (8) HTN (hypertension) Status: Chronic (9) HLD (hyperlipidemia) Status: Chronic (10) T2DM (type 2 diabetes mellitus) Status: Chronic (11) Obesity Status: Chronic ELDA ASCENCIO MD Jan 29, 2022 18:17
[2022-01-29] MEDS: DOCUSATE SODIUM 100 MG (COLACE) CAP PO SCH (20:54)
[2022-01-29] MEDS: SENNOSIDES 8.6 MG (SENOKOT) TAB PO SCH (20:55)
[2022-01-29] MEDS ORDERED: meTOprolol TARTRATE 25 MG (LOPRESSOR) TABLET PO SCH (21:00)
[2022-01-29] MEDS ORDERED: MELATONIN 3 MG TABLET PO SCH (21:00)
[2022-01-29] MEDS: MELATONIN 3 MG TABLET PO PRN (21:37)
[2022-01-29] MEDS: inSUlin ASPART (NovoLOG) 1 UNIT/0.01 ML (CHARGE PER UNIT) SC SCH (21:38)
[2022-01-30] VITALS (10 sets, daily range): BP systolic 93–147; BP diastolic 58–96
[2022-01-30] MEDS: MELATONIN 3 MG TABLET PO PRN ×2 (04:03→20:30)
[2022-01-30 05:08] LABS: BASOPHILS # (AUTO) 0.1 10^3/uL (0.0-0.1); BASOPHILS % (AUTO) 1 % (0-10); EOSINOPHILS # (AUTO) 0.3 10^3/uL (0.0-0.3); EOSINOPHILS % (AUTO) 3 % (0-10); HEMATOCRIT 43 % (40-54); HEMOGLOBIN 14.5 g/dL (13.3-17.7); LYMPHOCYTES # (AUTO) 1.5 10^3/uL (1.0-4.0); LYMPHOCYTES % (AUTO) 18 % (12-44); MEAN CORPUSCULAR HEMOGLOBIN 31 pg (25-34); MEAN CORPUSCULAR HGB CONC 33 g/dL (32-36); MEAN CORPUSCULAR VOLUME 93 fL (80-99); MEAN PLATELET VOLUME 10.6 fL (9.0-12.2); MONOCYTES # (AUTO) 0.8 10^3/uL (0.0-1.0); MONOCYTES % (AUTO) 10 % (0-12); NEUTROPHILS # (AUTO) 5.6 10^3/uL (1.8-7.8); NEUTROPHILS % (AUTO) 68 % (42-75); PLATELET COUNT 212 10^3/uL (130-400); WHITE BLOOD COUNT 8.3 10^3/uL (4.3-11.0)
[2022-01-30 05:36] LABS: CALCIUM 8.8 MG/DL (8.5-10.1); CREATININE SERUM 0.78 MG/DL (0.60-1.30); MAGNESIUM 1.6 MG/DL (1.6-2.4); POTASSIUM 3.6 MMOL/L (3.6-5.0)
[2022-01-30] MEDS: inSUlin ASPART (NovoLOG) 1 UNIT/0.01 ML (CHARGE PER UNIT) SC SCH ×4 (05:37→20:57)
--- NOTE | 2022-01-30 07:45 | Cardiology Progress Note ---
Subjective Date Seen by Provider: Jan 30, 2022 Time Seen by Provider: 07:25 Subjective/Events-last exam The pt reports chest pressure has improved, and he has no chest pain currently. His SOB and cough have also improved. Denies syncope or any new symptoms. He was unable to sleep well overnight due to Lasix. He has slight ankle edema still. He did have 5 beats of VTach yesterday, for which his metoprolol dose was adjusted. Dr. Felton: I am following him due to atrial fibrillation. He remained in atrial fibrillation overnight. He was sitting up on the edge of the bed. His breathing is improved. He denies chest pain, palpitations, or syncope. He has minimal bilateral lower extremity edema. He wants to know when he can go home. Certain portions of this document may have been dictated utilizing voice recog nition technology. Inherent to this technology, typographical and grammatical errors may exist. As much as I am diligent to identify and correct these mistakes, some errors may remain in the document. Focused Exam Respiratory: No Accessory Muscle Use, No Respiratory Distress, Decreased Breath Sounds Cardiovascular: Systolic Murmur, Irregularly Irregular, Tachycardia Skin: normal color, warm/dry Objective-Cardiology Exam Last Set of Vital Signs Vital Signs 01/30/22 01/30/22 01/30/22 08:00 14:17 15:40 Temp 36.5 Pulse 108 Resp 18 B/P (MAP) 147/96 (113) Pulse Ox 96 O2 Delivery Room Air O2 Flow Rate 2.00 FiO2 11 I&O Intake and Output 01/30/22 00:00 Intake Total 1130 ml Output Total 2200 ml Balance -1070 ml Intake Oral 1130 ml Output Urine Total 2200 ml # Voids 6 # Bowel Movements 1 Daily Weight Change No General: Alert, Oriented X3, Cooperative, No Acute Distress HEENT: Atraumatic, EOMI Neck: Supple Lungs: Other (diminished breath sounds at the bases bilaterally; decreased WOB from yesterday) Heart: Other (Tachycardia; systolic murmur) Abdomen: No Tenderness, Other (abdomen distended) Extremities: Other (bilateral ankle edema, no tenderness) Skin: Other (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 Felton: General: Alert. No acute distress. Eye: No xanthelasma. HENT: Normocephalic. Neck: Jugular venous pressure does not appear elevated. Respiratory: Lungs are clear to auscultation but decreased at the bases bilaterally. Respirations are non-labored. Breath sounds are equal. Symmetrical chest wall expansion. Cardiovascular: Tachycardia with irregular rhythm. 2/6 systolic ejection murmur. No gallop. Trace bilateral pretibial edema. Gastrointestinal: Soft. Normal bowel sounds. Skin: Warm. Dry. Neurologic: Alert and oriented to person, place, time. Cranial nerves 3-11 grossly intact. Psychiatric: Cooperative. Appropriate mood & affect. Results Lab Laboratory Tests 01/30/22 04:49 A/P-Cardiology Admission Diagnosis (1) Acute HFrEF (heart failure with reduced ejection fraction) Assessment & Plan: Continue IV lasix and beta soy. (2) Troponin level elevated Assessment & Plan: Most likely due to T2 NSTEMI secondary to tachycardia and heart failure. Will continue aspirin, beta soy, and continue on a statin. Dr. Felton: He had a cardiac catheterization in March 2021 that showed mild three-vessel coronary artery disease. We will continue the medication as outlined above. (3) Nonrheumatic aortic valve stenosis with regurgitation Assessment & Plan: Moderate, probably not contributing to current symptoms but will need to be followed (4) Primary hypertension Assessment & Plan: Continue metoprolol (5) Mixed hyperlipidemia Assessment & Plan: Continue atorvastatin (6) Carotid stenosis, right Assessment & Plan: Continue aspirin Assessment/Plan Dr. Felton: CHF, acute, with reduced ejection fraction. His ejection fraction was 45-50% on echocardiogram this admission. He does not report any previous history of heart failure. He has mild left ventricular systolic dysfunction as noted above. His ejection fraction is above 40%. Some of this could be related to tachycardia from the atrial fibrillation. I changed his amlodipine and ramipril over to metoprolol tartrate. I started him on intravenous furosemide. His chest x-ray continues to show evidence of heart failure with bilateral pleural effusions. If we can get his heart failure under control, we may be able to have him ready for discharge in the next 24-48 hours. Atrial fibrillation, paroxysmal. This is a new diagnosis for the patient. Exact duration unknown since the patient does not have palpitations. Based on his symptoms, this may have started about 5 days ago when his shortness of breath started. He had tachycardia with this. I started him on beta-soy a nd I will increase the dose as tolerated by his blood pressure. I started him on rivaroxaban for stroke prophylaxis. Assuming we can get his heart rate down below 110 bpm, we can probably get him discharged home and have him return for an outpatient cardioversion in approximately 30 days after appropriate length of anticoagulation. Abnormal troponin level. He has mild elevation of his troponin level but had a cardiac catheterization earlier this year that showed mild coronary artery disease. I suspect this is a type II non-ST elevation myocardial infarction secondary to the atrial fibrillation with rapid ventricular rate and the acute heart failure resulting in supply/demand mismatch. I will start him on low strength aspirin and restart his statin medication. Since he had a cardiac catheterization earlier this year, there is no indication for an ischemic evaluation at this time. Aortic stenosis with regurgitation. Both of these are in the moderate range and should not necessarily be causing symptoms but will need to be followed longitudinally. Mitral regurgitation. This appears to be moderate to severe. This could be contributing to his heart failure symptoms. This may need to be followed a little bit more closely than the aortic valve disease. Right carotid stenosis. He had a right carotid stent earlier this year and was placed on clopidogrel. Since he will be on rivaroxaban for the atrial fibrillation, I changed the clopidogrel over to aspirin which should be slightly less likely to cause hemorrhagic side effects than the combination of rivaroxaban with clopidogrel. Essential hypertension. He was taking amlodipine and ramipril at home. I changed these over to metoprolol due to the atrial fibrillation. Mixed hyperlipidemia. Continue statin medication. Type 2 diabetes mellitus. This will be managed by the hospitalist. Diagnosis/Problems Diagnosis/Problems (1) Acute HFrEF (heart failure with reduced ejection fraction) Assessment & Plan: Will start IV lasix and beta soy (2) Troponin level elevated Assessment & Plan: Most likely due to T2 NSTEMI Will start aspirin, beta soy, and continue on a statin (3) Nonrheumatic aortic valve stenosis with regurgitation Assessment & Plan: Moderate, probably not contributing to current symptoms but will need to be followed (4) Primary hypertension Assessment & Plan: Starting metoprolol (5) Mixed hyperlipidemia Assessment & Plan: Continue atorvastatin (6) Carotid stenosis, right Assessment & Plan: Change clopidogrel to aspirin Supervisory-Addendum Brief Verification & Attestation Participated in pt care: history, MDM, physical Personally performed: exam, history, MDM Care discussed with: Medical Student Procedures: n/a Results interpretation: Verified all documentation I independently interviewed the patient and performed my own history and physical examination as well as impression and plan. I reviewed the medical student's documentation as well. ASAF RIDDLE Jan 30, 2022 07:44 LETITIA FELTON JR, MD Jan 30, 2022 09:10
[2022-01-30] MEDS: FUROSEMIDE 40 MG/4 ML INJ (LASIX) IVP SCH (07:58)
[2022-01-30] MEDS: ASPIRIN 81 MG CHEW (CHILDREN'S ASA) PO SCH (07:58)
[2022-01-30] MEDS: meTOprolol TARTRATE 25 MG (LOPRESSOR) TABLET PO SCH ×3 (07:58→20:30)
[2022-01-30] MEDS: DOCUSATE SODIUM 100 MG (COLACE) CAP PO SCH ×2 (07:59→20:32)
[2022-01-30] MEDS: SENNOSIDES 8.6 MG (SENOKOT) TAB PO SCH ×2 (07:59→20:32)
[2022-01-30] MEDS ORDERED: KCL 20 MEQ TAB (K-DUR) PO NR (08:00)
[2022-01-30] MEDS: MAGNESIUM 1 GM/100 ML IVPB 100 ML IV SCH ×2 (09:11→09:37)
[2022-01-30] MEDS ORDERED: meTOprolol TARTRATE 25 MG (LOPRESSOR) TABLET PO NR (09:30)
[2022-01-30] MEDS ORDERED: ENOXAPARIN 40 MG/0.4 ML (LOVENOX) SYR SC SCH (10:00)
[2022-01-30] MEDS ORDERED: RT-ALBUTEROL SULF 2.5 MG/3 ML PRE-MIX VIAL INH PRN (11:15)
[2022-01-30] MEDS: RT-ALBUTEROL HFA 8.5 GM INHALER IH PRN ×2 (14:17→20:42)
--- NOTE | 2022-01-30 14:22 | Diagnostic Imaging Report ---
Indication: Shortness of breath. Time of Exam: 9:31 AM No prior studies are available for comparison. The heart is enlarged. There are some mild central congestive changes noted. There are small bilateral effusions as well. No parenchymal consolidation is seen. There is no pneumothorax. IMPRESSION: Central congestive changes and small bilateral pleural effusions. Dictated by: Dictated on workstation # [id number]
[2022-01-30] MEDS: ALPRAZolam 0.5 MG (XANAX) TAB PO PRN ×2 (14:24→20:30)
--- NOTE | 2022-01-30 17:10 | Progress Note - Hospitalist ---
Subjective HPI/CC On Admission Date Seen by Provider: Jan 30, 2022 Time Seen by Provider: 11:30 Sagar Rosenthal is a 71 year old male with PMH HTN, T2DM, HLD, carotid stenosis, aortic stenosis, CAD, who presented to the [place] with shortness of breath. He reports dyspnea worse with exertion. He has also had chest tightness. He has had a dry cough. He has had leg swelling. He also reports palpitations. He denies fevers and chills. He denies abdominal pain, nausea, vomiting, and diarrhea. He has been compliant with his medications. He has been having symptoms for the past few weeks. He follows with Dr. Rodriguez. Subjective/Events-last exam He is feeling better today. He denies shortness of breath. He denies chest pain and palpitations. Objective Exam Vital Signs Vital Signs Date Time Temp Pulse Resp B/P (MAP) Pulse Ox O2 Delivery O2 Flow Rate FiO2 01/30/22 16:00 104 14 132/63 (86) 97 Room Air 01/30/22 15:40 36.5 01/30/22 14:17 2.00 01/30/22 08:00 11 Capillary Refill : General Appearance: No Apparent Distress, Obese Respiratory: Lungs Clear, No Respiratory Distress Cardiovascular: No Murmur, Irregularly Irregular Gastrointestinal: Normal Bowel Sounds, Soft Extremity: Non Tender, Pedal Edema Neurologic/Psychiatric: Alert, Normal Mood/Affect Skin: Normal Color, Warm/Dry Results/Procedures Lab Laboratory Tests 01/30/22 04:49 Patient resulted labs reviewed. Assessment/Plan Assessment and Plan Assess & Plan/Chief Complaint Paroxysmal atrial fibrillation, new onset Cardiology following Increased Metoprolol Continue Xarelto Chest pain Elevated troponin CAD Likely type II CT Heart cath with mild CAD earlier this year Monitor Acute on chronic HFpEF Aortic stenosis Echo with EF 45-50% Moderate aortic stenosis Lasix HTN Metoprolol HLD Statin T2DM Resume Metformin Sliding scale insulin DVT prophylaxis: already starting therapeutic anticoagulation Diagnosis/Problems Diagnosis/Problems (1) Chest pain Status: Acute (2) New onset atrial fibrillation Status: Acute (3) Acute on chronic heart failure with preserved ejection fraction (HFpEF) Status: Acute (4) NSTEMI (non-ST elevation myocardial infarction) Status: Acute (5) Elevated troponin Status: Acute (6) CAD (coronary artery disease) Status: Chronic (7) Aortic stenosis Status: Chronic (8) HTN (hypertension) Status: Chronic (9) HLD (hyperlipidemia) Status: Chronic (10) T2DM (type 2 diabetes mellitus) Status: Chronic (11) Obesity Status: Chronic LUPE ASCENCIO MD Jan 30, 2022 17:10
[2022-01-30] MEDS: RIVAROXABAN 20 MG TABLET (XARELTO) PO SCH (17:23)
[2022-01-30] MEDS ORDERED: CLOPIDOGREL 75 MG (PLAVIX) TABLET PO SCH (18:00)
[2022-01-30] MEDS: metFORMIN 500 MG (GLUCOPHAGE) TAB PO SCH (18:41)
[2022-01-30] MEDS: ACETAMINOPHEN 325 MG TABLET PO PRN (20:31)
[2022-01-30] MEDS ORDERED: NON-FORMULARY MEDICATION 1 EA EA (Metformin HCl 1,000 MG) PO SCH (21:00)
[2022-01-30] MEDS ORDERED: ALPRAZolam 0.25 MG (XANAX) TAB PO ONE (22:45)
[2022-01-31 03:35] VITALS: BP 121/93
[2022-01-31] MEDS: inSUlin ASPART (NovoLOG) 1 UNIT/0.01 ML (CHARGE PER UNIT) SC SCH (05:35)
[2022-01-31] MEDS: ACETAMINOPHEN 325 MG TABLET PO PRN (05:36)
[2022-01-31 08:00] VITALS: BP 95/72
[2022-01-31] MEDS: metFORMIN 500 MG (GLUCOPHAGE) TAB PO SCH (08:04)
[2022-01-31] MEDS: meTOprolol TARTRATE 25 MG (LOPRESSOR) TABLET PO SCH (08:04)
[2022-01-31] MEDS: ASPIRIN 81 MG CHEW (CHILDREN'S ASA) PO SCH (08:04)
[2022-01-31] MEDS: DOCUSATE SODIUM 100 MG (COLACE) CAP PO SCH (08:15)
[2022-01-31] MEDS: FUROSEMIDE 40 MG/4 ML INJ (LASIX) IVP SCH (08:15)
[2022-01-31] MEDS: SENNOSIDES 8.6 MG (SENOKOT) TAB PO SCH (08:18)
--- NOTE | 2022-01-31 09:44 | Cardiology Progress Note ---
Progress Note-Cardiology Events since last exam Date Seen by Provider: Jan 31, 2022 Time Seen by Provider: 09:43 Events since last exam I am following him due to atrial fibrillation and heart failure. His breathing is much improved. His main complaint is that he has not slept very well in the past 4 nights. He denies chest discomfort, palpitations, or syncope. He has minimal right lower extremity edema. His nurse tells me that last night he appeared to be . Certain portions of this document may have been dictated utilizing voice r ecognition technology. Inherent to this technology, typographical and grammatical errors may exist. As much as I am diligent to identify and correct these mistakes, some errors may remain in the document. Vitals Last set of Vitals Signs Vital Signs 01/30/22 01/30/22 01/31/22 08:00 23:00 03:35 Pulse Ox 95 O2 Flow Rate 2.00 FiO2 11 Exam Vital Signs Vital Signs Date Time Temp Pulse Resp B/P (MAP) Pulse Ox O2 Delivery O2 Flow Rate FiO2 01/31/22 08:00 36.2 24 95/72 (80) Room Air 01/31/22 08:00 122 01/31/22 03:35 95 01/30/22 23:00 2.00 01/30/22 08:00 11 Physical Exam General: Alert. No acute distress. He is obese. Eye: No xanthelasma. HENT: Normocephalic. Neck: Jugular venous pressure does not appear elevated. Respiratory: Lungs are clear to auscultation with improved aeration at the bases bilaterally. Respirations are non-labored. Breath sounds are equal. Symmetrical chest wall expansion. Cardiovascular: Tachycardia with irregular rhythm. 2/6 systolic ejection murmur. No gallop. Trace right lower extremity pretibial edema. Gastrointestinal: Soft. Normal bowel sounds. Skin: Warm. Dry. Neurologic: Alert and oriented to person only. Cranial nerves 3-11 grossly intact. Psychiatric: Cooperative. Appropriate mood & affect. Labs Laboratory Tests Test 01/30/22 11:22 01/30/22 15:37 01/30/22 20:48 01/31/22 05:33 Range/Units Glucometer 231 H 226 H 198 H 102 70-110 MG/DL Diagnosis/Problems Diagnosis/Problems (1) Acute HFrEF (heart failure with reduced ejection fraction) Assessment & Plan: He is responding nicely to intravenous Lasix and beta- soy. He had just been started on Lasix 20 mg daily a few days prior to admission. I will change this to 40 mg daily at the time of discharge. (2) Paroxysmal atrial fibrillation Assessment & Plan: He has persistent tachycardia despite increasing metoprolol. I will add a low-dose of digoxin. If his heart rates are better this afternoon, he may be ready for discharge at that time. I started him on rivaroxaban for stroke prophylaxis. (3) Troponin level elevated Assessment & Plan: I suspect he may have had a type II non-ST elevation myocardial infarction due to heart failure and atrial fibrillation with a rapid ventricular rate with supply/demand mismatch. We will continue aspirin, beta- soy and statin medication. There is no indication for an ischemic evaluation at this time. (4) Nonrheumatic aortic valve stenosis with regurgitation Assessment & Plan: This is moderate and I suspect not contributing to his symptoms but will need to be followed longitudinally. (5) Primary hypertension Assessment & Plan: Blood pressure is reasonably controlled with the metoprolol. I stopped his amlodipine and ramipril so that we could give him enough metopro lol to control his heart rate. If anything, his blood pressures are somewhat on the soft side at times. (6) Mixed hyperlipidemia Assessment & Plan: Continue atorvastatin. (7) Carotid stenosis, right Assessment & Plan: Since I started rivaroxaban for the atrial fibrillation, I changed his clopidogrel over to aspirin. He will continue on statin. LETITIA RIDDLE JR, MD Jan 31, 2022 09:44
[2022-01-31] MEDS ORDERED: DIGOXIN 0.125 MG (LANOXIN) TAB PO ONE (09:45)
[2022-01-31] MEDS ORDERED: DIGOXIN 0.25 MG/ML (LANOXIN) 2 ML AMP IV ONE (09:45)
[2022-01-31] MEDS: ALPRAZolam 0.5 MG (XANAX) TAB PO PRN (09:59)
[2022-01-31 11:48] VITALS: BP 135/108
[2022-01-31] MEDS ORDERED: RIVA20TA2 PO (12:12)
[2022-01-31] MEDS ORDERED: METO75TA PO (12:16)
[2022-01-31] MEDS ORDERED: DIGO125T18 PO (12:16)
[2022-01-31] MEDS ORDERED: ASPI81TA64 PO (12:16)
[2022-01-31] MEDS ORDERED: FURO40TA4 PO (12:16)
--- NOTE | 2022-01-31 16:23 | Discharge Summary ---
Discharge Summary Hospital Course Was the Problem List Reviewed?: Yes Problems/Dx: (1) New onset atrial fibrillation Status: Acute (2) Acute on chronic heart failure with preserved ejection fraction (HFpEF) Status: Acute (3) NSTEMI (non-ST elevation myocardial infarction) Status: Acute (4) Aortic stenosis Status: Chronic (5) CAD (coronary artery disease) Status: Chronic (6) HTN (hypertension) Status: Chronic (7) HLD (hyperlipidemia) Status: Chronic (8) T2DM (type 2 diabetes mellitus) Status: Chronic (9) Obesity Status: Chronic Hospital Course Date of Admission: Jan 29, 2022 at 09:22 Admission Diagnosis : Chest pain Family Physician/Provider: Gilmar Rodriguez DO Date of Discharge: 01/31/22 Discharge Diagnosis: New onset AFib, Acute on chronic HFpEF, NSTEMI Hospital Course: Sagar Rosenthal is a 71 year old male with PMH HTN, T2DM, HLD, CAD, HFpEF, carotid stenosis, aortic stenosis, obesity, who presented with chest pain to the [place] ER. He was transferred to [facility] after being found to have an elevated troponin. Cardiology was consulted and assisted with his care. He was found to be in paroxysmal atrial fibrillation with rapid ventricular response. He was started on Metoprolol and Xarelto. He continued to have tachycardia and was started on Digoxin. His course was complicated by acute on chronic HFpEF. He was diuresed and his shortness of breath improved. He also had issues with delirium. His reports some memory issues at baseline as well as family history of dementia. He was encouraged to follow up with his primary care physician for dementia screening. He was discharged home in stable condition. Labs and Pending Lab Test: Laboratory Tests 01/30/22 20:48: Glucometer 198H 01/31/22 05:33: Glucometer 102 01/31/22 10:55: Glucometer 211H Home Meds Active Children's Aspirin (Aspirin) 81 Mg Tab.chew 81 Mg PO DAILY Metoprolol Tartrate 75 Mg Tablet 75 Mg PO BID Digox (Digoxin) 125 Mcg (0.125 Mg) Tablet 0.125 Mg PO DAILY Furosemide 40 Mg Tablet 40 Mg PO DAILY Xarelto Tablet (Rivaroxaban) 20 Mg Tablet 20 Mg PO DAILY@1700 TAKE WITH THE LARGEST MEAL OF THE DAY. Reported Vitamin D3 (Cholecalciferol (Vitamin D3)) 50 Mcg (2000 Unit) Capsule 50 Mcg PO DAILY Multivitamin 1 Each Tablet 1 Each PO DAILY Tizanidine HCl 4 Mg Tablet 4 Mg PO HS PRN Ventolin Hfa (Albuterol Sulfate) 90 Mcg Hfa.aer.ad 2 Puff INH Q6H PRN Alprazolam 0.5 Mg Tablet 0.5 Mg PO HS Atorvastatin Calcium 20 Mg Tablet 20 Mg PO HS Metformin HCl 1,000 Mg Tablet 1,000 Mg PO BID Assessment/Pt Instructions Take medications as prescribed. Follow up with Dr. Rodriguez and Cardiology as scheduled. Return with worsening chest pain, shortness of breath, or if you feel like you are getting worse. Discharge Planning: >30 minutes discharge planning Discharge Instructions Discharge Diet: Low Sodium Diet, ADA Diet Activity as Tolerated: Yes Consultations Cardiology Discharge Physical Examination Vital Signs Vital Signs Date Time Temp Pulse Resp B/P (MAP) Pulse Ox O2 Delivery O2 Flow Rate FiO2 01/31/22 14:00 01/31/22 12:28 103 01/31/22 11:48 36.2 20 96 Room Air 01/31/22 11:04 2.00 01/30/22 08:00 11 General Appearance: No Apparent Distress, Obese Respiratory: Lungs Clear, No Respiratory Distress Cardiovascular: Regular Rate, Rhythm, Tachycardia Gastrointestinal: Normal Bowel Sounds, Soft Extremity: Normal Inspection, Pedal Edema Skin: Normal Color, Warm/Dry Neurologic/Psychiatric: Alert, No Motor/Sensory Deficits Allergies: Coded Allergies: No Known Drug Allergies (Unverified , 10/06/21) Copy Copies To 1: GILMAR RODRIGUEZ DO Discharge Summary Date of Admission Jan 29, 2022 at 09:22 Date of Discharge Jan 31, 2022 at 14:00 Discharge Date: Jan 31, 2022 Discharge Time: 14:00 Admission Diagnosis Chest pain Consults/Procedures Consulations Cardiology Discharge Diagnosis Paroxysmal atrial fibrillation, new onset Acute on chronic HFpEF Aortic stenosis NSTEMI CAD HTN HLD T2DM Obesity (1) New onset atrial fibrillation Status: Acute (2) Acute on chronic heart failure with preserved ejection fraction (HFpEF) Status: Acute (3) NSTEMI (non-ST elevation myocardial infarction) Status: Acute (4) Aortic stenosis Status: Chronic (5) CAD (coronary artery disease) Status: Chronic (6) HTN (hypertension) Status: Chronic (7) HLD (hyperlipidemia) Status: Chronic (8) T2DM (type 2 diabetes mellitus) Status: Chronic (9) Obesity Status: Chronic LUPE ASCENCIO MD Jan 31, 2022 16:15
[2022-02-01] MEDS ORDERED: DIGOXIN 0.125 MG (LANOXIN) TAB PO SCH (09:00)
== END 2022-01-31 13:01 | disposition home or self-care (01) ==
LOC: CSD 09:22 → UNDOADMOB 09:22 → CSD 09:31 → UNDODISOB 01-31 13:01
PROVIDERS: ADMIT Internal Medicine; ATTEND Internal Medicine
DX: I48.0 Paroxysmal atrial fibrillation (principal); I11.0 Hypertensive heart disease with heart failure; I50.33 Acute on chronic diastolic (congestive) heart failure; I21.4 Non-ST elevation (NSTEMI) myocardial infarction; I25.10 Atherosclerotic heart disease of native coronary artery without angina pectoris; E11.9 Type 2 diabetes mellitus without complications; E66.9 Obesity, unspecified; I35.2 Nonrheumatic aortic (valve) stenosis with insufficiency; E78.2 Mixed hyperlipidemia; I65.21 Occlusion and stenosis of right carotid artery; Z87.891 Personal history of nicotine dependence; Z68.31 Body mass index [BMI] 31.0-31.9, adult; Z28.311 Partially vaccinated for COVID-19
CPT/HCPCS: 71046; 80048; 82947 ×3; 83735; 84484; 85025; 93005 ×2; 94640; 96366; 96374; 96375 ×2; 96376 ×2; C8929; G0378; G0379; 36415; 93306

== ENCOUNTER 2022-02-16 07:31 | Emergency (ER) | payer MEDICARE, OTHER ==
[~2022-02-16] VITALS: Ht 180.3 cm; Wt 104.3 kg
[~2022-02-16 07:31] MED LIST changes: +ALBU18HF2 INH; +ALPR0.5T7 PO; +ASPI81TA64 PO; +ATOR20TA66 PO; +CHOL200074 PO; +CLOP-31 PO; +CLOP75TA28 PO; -CLOP75TA69 PO; +DIGO125T18 PO; +FURO-125 PO; +FURO40TA4 PO; +METO75TA PO; +MULT-1136 PO; +RAMI10CA69 PO; +RIVA20TA2 PO; +TIZA-186 PO
[2022-02-16 07:55] LABS: BASOPHILS # (AUTO) 0.1 10^3/uL (0.0-0.1); BASOPHILS % (AUTO) 1 % (0-10); EOSINOPHILS # (AUTO) 0.3 10^3/uL (0.0-0.3); EOSINOPHILS % (AUTO) 4 % (0-10); HEMATOCRIT 43 % (40-54); HEMOGLOBIN 14.4 g/dL (13.3-17.7); LYMPHOCYTES # (AUTO) 1.2 10^3/uL (1.0-4.0); LYMPHOCYTES % (AUTO) 13 % (12-44); MEAN CORPUSCULAR HEMOGLOBIN 32 pg (25-34); MEAN CORPUSCULAR HGB CONC 34 g/dL (32-36); MEAN CORPUSCULAR VOLUME 95 fL (80-99); MEAN PLATELET VOLUME 11.5 fL (9.0-12.2); MONOCYTES # (AUTO) 0.7 10^3/uL (0.0-1.0); MONOCYTES % (AUTO) 8 % (0-12); NEUTROPHILS # (AUTO) 6.7 10^3/uL (1.8-7.8); NEUTROPHILS % (AUTO) 74 % (42-75); PLATELET COUNT 207 10^3/uL (130-400)
--- NOTE | 2022-02-16 08:17 | ED Chest Pain ---
General Chief Complaint: Respiratory Problems Stated Complaint: CHEST PAINS | AFIB |SOB Nursing Triage Note: PT TO RM 7 BY WC WITH COMPLAINT OF WORSENING SOA OVER LAST 3 DAYS. STATES WAS ADMITTED 10 DAYS AGO FOR NEW ONSET OF AFIB. DENIES CP Source: patient, family, old records Exam Limitations: no limitations History of Present Illness Date Seen by Provider: Feb 16, 2022 Time Seen by Provider: 07:48 Initial Comments This is 71-year-old gentleman presents to the emergency room with increasing chest heaviness and shortness of breath over the past few days. He had recent admission January 29. He has atrial fibrillation, aortic stenosis, peripheral vascular disease, type 2 diabetes, pulmonary hypertension, and asthma. He is being followed by Dr. Ruano. He was to have blood work performed outpatient this morning and a follow-up appointment with Dr. Ruano on Wednesday to discuss treatment options for his atrial fibrillation. He denies significant cough or fever but he has been diaphoretic. He had cardiac angiography in March that demonstrated mild to moderate disease without any need for interventions. There was notable aortic stenosis. She has had a right CEA with stent placement. He has history of asthma and uses an albuterol inhaler. He is not wheezing at this time. reports he has had a little bit of confusion this morning. He is anticoagulated on Xarelto. He reports recent increased lower extremity edema. Allergies and Home Medications Allergies Coded Allergies: No Known Drug Allergies (Unverified , 10/06/21) Patient Home Medication List Home Medication List Reviewed: Yes Albuterol Sulfate (Ventolin Hfa) 90 Mcg Hfa.aer.ad, 2 PUFF INH Q6H PRN for SHORTNESS OF BREATH, (Reported) Entered as Reported by: GEENA LIGHT on 01/29/22 1425 Alprazolam (Alprazolam) 0.5 Mg Tablet, 0.5 MG PO HS, (Reported) Entered as Reported by: GEENA LIGHT on 01/29/22 1425 Aspirin (Children's Aspirin) 81 Mg Tab.chew, 81 MG PO DAILY Prescribed by: LETITIA RIDDLE JR, MD on 01/31/22 1216 Atorvastatin Calcium (Atorvastatin Calcium) 20 Mg Tablet, 20 MG PO HS, (Reported) Entered as Reported by: GEENA LIGHT on 01/29/22 1425 Cholecalciferol (Vitamin D3) (Vitamin D3) 50 Mcg (2000 Unit) Capsule, 50 MCG PO DAILY, (Reported) Entered as Reported by: GEENA LIGHT on 01/29/22 142 Digoxin (Digox) 125 Mcg (0.125 Mg) Tablet, 0.125 MG PO DAILY Prescribed by: LETITIA RIDDLE JR, MD on 01/31/22 1216 Doxycycline Hyclate (Doxycycline Hyclate) 100 Mg Tablet, 100 MG PO BID Prescribed by: CLEM GOMEZ on 02/16/22 1253 Furosemide (Furosemide) 40 Mg Tablet, 40 MG PO DAILY Prescribed by: LETITIA RIDDLE JR, MD on 01/31/22 1216 Magnesium Oxide (Magnesium Oxide) 400 Mg Tablet, 400 MG PO BID Prescribed by: CLEM GOMEZ on 02/16/22 1253 Metformin HCl (Metformin HCl) 1,000 Mg Tablet, 1,000 MG PO BID, (Reported) Entered as Reported by: PATRICIA NAIR on 10/06/21 1001 Metoprolol Tartrate (Metoprolol Tartrate) 75 Mg Tablet, 75 MG PO BID Prescribed by: LETITIA RIDDLE JR, MD on 01/31/22 1216 Multivitamin (Multivitamin) 1 Each Tablet, 1 EACH PO DAILY, (Reported) Entered as Reported by: GEENA LIGHT on 01/29/22 142 Rivaroxaban (Xarelto Tablet) 20 Mg Tablet, 20 MG PO DAILY@1700 Prescribed by: LETITIA RIDDLE JR, MD on 01/31/22 1212 Tizanidine HCl (Tizanidine HCl) 4 Mg Tablet, 4 MG PO HS PRN for MUSCLE SPASMS, (Reported) Entered as Reported by: GEENA LIGHT on 01/29/22 142 Review of Systems Review of Systems Constitutional: see HPI, diaphoresis, malaise EENTM: No Symptoms Reported Respiratory: See HPI Cardiovascular: See HPI Gastrointestinal: No Symptoms Reported Genitourinary: No Symptoms Reported Musculoskeletal: no symptoms reported Skin: see HPI Psychiatric/Neurological: See HPI Endocrine: No Symptoms Reported Hematologic/Lymphatic: No Symptoms Reported Past Kicehdg-Wlxoug-Utehyy Hx Patient Social History Tobacco Use?: No Use of E-Cig and/or Vaping dev: No Substance use?: No Alcohol Use?: No Pt feels they are or have been: No Immunizations Up To Date First/Initial COVID19 Vaccinat: 2020 Second COVID19 Vaccination Rony: 2020 Third COVID19 Vaccination Date: 2020 Seasonal Allergies Seasonal Allergies: Yes Past Medical History Surgeries: Yes (RIGHT KNEE SCOPE, R CAROTID STENT, LATERAL MENISCECTOMY, LTKR, R SHOULDER ) Eye Surgery (Left cataract), Orthopedic, Vascular Surgery (Right CEA with stent) Respiratory: Yes Sleep Apnea Currently Using CPAP: No Currently Using BIPAP: No Cardiac: Yes (MURMUR/AORTIC HEART VALVE PROBLEMS, BRADYCARDIA, R CAROTID STENT) Atrial Fibrillation, High Cholesterol, Hypertension, Hypotension, Peripheral Vascular, Valvular Heart Disease (Aortic stenosis) Neurological: No Reproductive Disorders: No Sexually Transmitted Disease: No Genitourinary: No Gastrointestinal: No Musculoskeletal: Yes Arthritis Endocrine: Yes (TYPE II) Diabetes, Non-Insulin dep HEENT: Yes (RIGHT CAT SX) Cataract Cancer: No Psychosocial: Yes Sleep Difficulties Integumentary: No Blood Disorders: No Family Medical History No Pertinent Family Hx Physical Exam Vital Signs Vital Signs - First Documented 02/16/22 07:36 Temp 36.4 Pulse 99 Resp 25 B/P (MAP) 131/103 (112) Pulse Ox 95 O2 Delivery Room Air Capillary Refill : Less Than 3 Seconds Height, Weight, BMI Height: '" Weight: lbs. oz. kg; 32.00 BMI Method: General Appearance: No Apparent Distress, WD/WN, Obese HEENT: PERRL/EOMI, Normal ENT Inspection Neck: Normal Inspection Respiratory: Lungs Clear, Normal Breath Sounds, No Accessory Muscle Use Cardiovascular: No JVD, No Murmur, Irregularly Irregular, Other (Moderate firm pitting lower extremity edema equal bilateral) Gastrointestinal: Non Tender, Soft; No Distended Extremity: Non Tender, Pedal Edema, Swelling Neurologic/Psychiatric: Alert, Oriented x3, No Motor/Sensory Deficits, Normal Mood/Affect Skin: Normal Color, Diaphoresis Progress/Results/Core Measures Results/Orders Lab Results Laboratory Tests Test 02/16/22 07:47 02/16/22 08:11 02/16/22 09:55 Range/Units White Blood Count 9.0 4.3-11.0 10^3/uL Red Blood Count 4.51 4.30-5.52 10^6/uL Hemoglobin 14.4 13.3-17.7 g/dL Hematocrit 43 40-54 % Mean Corpuscular Volume 95 80-99 fL Mean Corpuscular Hemoglobin 32 25-34 pg Mean Corpuscular Hemoglobin Concent 34 32-36 g/dL Red Cell Distribution Width 13.7 10.0-14.5 % Platelet Count 207 130-400 10^3/uL Mean Platelet Volume 11.5 9.0-12.2 fL Immature Granulocyte % (Auto) 0 % Neutrophils (%) (Auto) 74 42-75 % Lymphocytes (%) (Auto) 13 12-44 % Monocytes (%) (Auto) 8 0-12 % Eosinophils (%) (Auto) 4 0-10 % Basophils (%) (Auto) 1 0-10 % Neutrophils # (Auto) 6.7 1.8-7.8 10^3/uL Lymphocytes # (Auto) 1.2 1.0-4.0 10^3/uL Monocytes # (Auto) 0.7 0.0-1.0 10^3/uL Eosinophils # (Auto) 0.3 0.0-0.3 10^3/uL Basophils # (Auto) 0.1 0.0-0.1 10^3/uL Immature Granulocyte # (Auto) 0.0 0.0-0.1 10^3/uL Prothrombin Time 26.7 H 12.2-14.7 SEC INR Comment 2.4 H 0.8-1.4 Activated Partial Thromboplast Time 42 H 24-35 SEC Sodium Level 137 135-145 MMOL/L Potassium Level 4.5 3.6-5.0 MMOL/L Chloride Level 102 98-107 MMOL/L Carbon Dioxide Level 24 21-32 MMOL/L Anion Gap 11 5-14 MMOL/L Blood Urea Nitrogen 26 H 7-18 MG/DL Creatinine 1.15 0.60-1.30 MG/DL Estimat Glomerular Filtration Rate 68 BUN/Creatinine Ratio 23 Glucose Level 322 H 70-105 MG/DL Calcium Level 9.5 8.5-10.1 MG/DL Corrected Calcium 9.4 8.5-10.1 MG/DL Magnesium Level 1.2 L 1.6-2.4 MG/DL Total Bilirubin 0.6 0.1-1.0 MG/DL Aspartate Amino Transf (AST/SGOT) 25 5-34 U/L Alanine Aminotransferase (ALT/SGPT) 31 0-55 U/L Alkaline Phosphatase 87 40-136 U/L Myoglobin 61.2 10.0-92.0 NG/ML Troponin I 0.082 H 0.072 H <0.028 NG/ML C-Reactive Protein High Sensitivity 1.77 H 0.00-0.50 MG/DL B-Type Natriuretic Peptide 574.8 H <100.0 PG/ML Total Protein 7.2 6.4-8.2 GM/DL Albumin 4.1 3.2-4.5 GM/DL Digoxin Level < 0.30 L 0.80-2.00 NG/ML Influenza Type A (RT-PCR) Not Detected Not Detecte Influenza Type B (RT-PCR) Not Detected Not Detecte SARS-CoV-2 RNA (RT-PCR) Not Detected Not Detecte My Orders Orders - CLEM MORALES MD Cbc With Automated Diff (02/16/22 07:48) Magnesium (02/16/22 07:48) Chest 1 View, Ap/Pa Only (02/16/22 07:48) Ekg Tracing (02/16/22 07:48) Comprehensive Metabolic Panel (02/16/22 07:48) Myoglobin Serum (02/16/22 07:48) Protime With Inr (02/16/22 07:48) Partial Thromboplastin Time (02/16/22 07:48) O2 (02/16/22 07:48) Monitor-Rhythm Ecg Trace Only (02/16/22 07:48) Ed Iv/Invasive Line Start (02/16/22 07:48) Bnp Siva (02/16/22 07:48) Troponin I S[place] (02/16/22 07:48) Hs C Reactive Protein (02/16/22 07:48) Digoxin (02/16/22 08:06) Covid 19 Inhouse Test (02/16/22 08:06) Influenza A And B By Pcr (02/16/22 08:06) Troponin I [place] (02/16/22 09:50) Furosemide Injection (Lasix Injection) (02/16/22 12:45) Magnesium 1 Gm/100 Ml Ivpb (Magnesium [place] (02/16/22 12:34) Potassium Chloride (Tablet) (Klor Con Ta (02/16/22 12:45) Metoprolol Tartrate (Ir) Tab (Lopressor (02/16/22 13:00) Digoxin Tablet (Lanoxin Tablet) (02/16/22 13:00) Vital Signs/I&O 02/16/22 02/16/22 07:36 14:18 Temp 36.4 Pulse 99 112 Resp 25 18 B/P (MAP) 131/103 (112) 142/95 Pulse Ox 95 97 O2 Delivery Room Air 02/17/22 00:00 Intake Total 100 ml Balance 100 ml Blood Pressure Mean: 112 Progress Progress Note #1: Time: 08:17 Progress Note Patient was interviewed and examined. Documentation from prior visit and March heart cath was reviewed. Labs, chest x-ray, and EKG are pending. Progress Note #2: Time: : Progress Note Work-up revealed possible worsening pulmonary edema based on elevated BNP and chest x-ray. Troponin was slightly elevated but lower than during the prior hospital visit. Repeat troponin was trending downward. I will discuss his case with Dr. Ruano prior to determining discharge or admission. Dr. Ruano has been paged and I am awaiting a callback. Progress Note #3: Progress Note Discussed case with Dr. Ruano. Magnesium replacement with 2 gram IV was initiated. Lasix administered. Patient was stable with improvement and discharged. Dig level low. Patient reports compliance. He was advised to discuss dosing with Dr. Rauno at the follow-up appt. Initial ECG Impression Date: Feb 16, 2022 Initial ECG Impression Time: 08:16 Initial ECG Rate: 77 Initial ECG Rhythm: A Fib/Flutter Comment Rate controlled atrial fibrillation with subtle ST changes without significant acute ST change from prior comparison. No STEMI. Intraventricular conduction delay noted. No axis deviation. Overall no major change from prior. Diagnostic Imaging Diagonstic Imaging: Xray Plain Films/CT/US/NM/MRI: chest Comments Chest x-ray viewed by me and report reviewed. See report below: NAME: DALLAS FERREIRA MED REC#: [id number] PT STATUS: REG ER : 1950 PHYSICIAN: CLEM MORALES MD ADMIT DATE: 02/16/22/ER Signed Date of Exam:02/16/22 CHEST 1 VIEW, AP/PA ONLY EXAMINATION: Chest radiograph, portable AP view. DATE: 02/16/2022 8:53 AM INDICATION: 71-year-old male, worsening shortness of breath. COMPARISON: Chest radiographs January 30, 2022. FINDINGS: The heart is enlarged. There is no identified pneumothorax. There are bilateral interstitial opacities. There is no identified large pleural effusion. There are anchors in the right humeral head. There are degenerative changes of the spine. IMPRESSION: 1. Cardiomegaly with bilateral interstitial opacities which may reflect interstitial edema, atypical infection, and/or pneumonitis. Dictated by: Dictated on workstation # [id number] Dict: 02/16/22905 Trans: 02/16/22938 CV [id number] Interpreted by: LENORE JONES MD Electronically signed by: LENORE JONES MD 02/16/22938 Departure Impression Primary Impression: Acute exacerbation of congestive heart failure Qualified Codes: I50.9 - Heart failure, unspecified Additional Impressions: Shortness of breath Edema Qualified Codes: R60.9 - Edema, unspecified Hypomagnesemia Disposition: 01 HOME, SELF-CARE Condition: Improved Departure-Patient Inst. Decision time for Depature: 12:50 Referrals: REJI JOYNER DO (PCP/Family) Primary Care Physician Patient Instructions: Heart Failure, Adult (DC) Add. Discharge Instructions: Continue your medications as previously prescribed starting with this evening's doses. Take doxycycline as prescribed for a possible pneumonia. Take a magnesium supplement as prescribed over the next several days to help boost your magnesium levels. Keep your appointment with Dr. Ruano on Wednesday, and schedule a follow-up appointment with your primary care provider within the next couple weeks. Return to the emergency room if you have worsening symptoms. All discharge instructions reviewed with patient and/or family. Voiced understanding. Scripts Magnesium Oxide (Magnesium Oxide) 400 Mg Tablet 400 MG PO BID, #10 TAB Prov: CLEM MORALES MD 02/16/22 Doxycycline Hyclate (Doxycycline Hyclate) 100 Mg Tablet 100 MG PO BID, #20 TAB 0 Refills Prov: CLEM MORALES MD 02/16/22 Copy Copies To 1: SILVIA RUANO MD [facility] CCDS Copies To 2: REJI JOYNER JOSHUA T MD Feb 16, 2022 08:17
[2022-02-16 08:22] LABS: ALBUMIN 4.1 GM/DL (3.2-4.5); BILIRUBIN,TOTAL 0.6 MG/DL (0.1-1.0); CALCIUM 9.5 MG/DL (8.5-10.1); CREATININE SERUM 1.15 MG/DL (0.60-1.30); MAGNESIUM 1.2 MG/DL (1.6-2.4); POTASSIUM 4.5 MMOL/L (3.6-5.0); TOTAL PROTEIN 7.2 GM/DL (6.4-8.2)
[2022-02-16 08:27] LABS: INR 2.4 (0.8-1.4); PROTHROMBIN TIME PATIENT 26.7 SEC (12.2-14.7)
--- NOTE | 2022-02-16 09:10 | Diagnostic Imaging Report ---
EXAMINATION: Chest radiograph, portable AP view. DATE: 02/16/2022 8:53 AM INDICATION: 71-year-old male, worsening shortness of breath. COMPARISON: Chest radiographs January 30, 2022. FINDINGS: The heart is enlarged. There is no identified pneumothorax. There are bilateral interstitial opacities. There is no identified large pleural effusion. There are anchors in the right humeral head. There are degenerative changes of the spine. IMPRESSION: 1. Cardiomegaly with bilateral interstitial opacities which may reflect interstitial edema, atypical infection, and/or pneumonitis. Dictated by: Dictated on workstation # [id number]
[2022-02-16] MEDS ORDERED: MAGNESIUM 1 GM/100 ML IVPB 100 ML IV STA (12:34)
[2022-02-16] MEDS ORDERED: FUROSEMIDE 40 MG/4 ML INJ (LASIX) IVP ONE (12:45)
[2022-02-16] MEDS ORDERED: KCL 10 MEQ TAB (MICRO K) PO ONE (12:45)
[2022-02-16] MEDS ORDERED: MAGN400T7 PO (12:53)
[2022-02-16] MEDS ORDERED: DOXY100T2 PO (12:53)
[2022-02-16] MEDS ORDERED: DIGOXIN 0.125 MG (LANOXIN) TAB PO ONE (13:00)
[2022-02-16] MEDS ORDERED: meTOprolol TARTRATE 50 MG (LOPRESSOR) TAB PO ONE (13:00)
[2022-02-16 14:18] VITALS: BP 142/95
== END 2022-02-16 14:18 | disposition home or self-care (01) ==
LOC: EDUNIT# 07:31 → ER 07:33
DX: I50.9 Heart failure, unspecified (principal); R60.9 Edema, unspecified; I48.91 Unspecified atrial fibrillation; E83.42 Hypomagnesemia; Z79.01 Long term (current) use of anticoagulants; Z20.822 Contact with and (suspected) exposure to COVID-19
CPT/HCPCS: 36415; 71045; 80053; 80162; 83735; 83874; 83880; 84484; 85025; 85610; 85730; 86141; 87636; 93005; 93041

== ENCOUNTER 2022-02-20 07:14 | Day surgery (SDC) | payer MEDICARE, OTHER ==
[2022-02-20] VITALS (9 sets, daily range): BP systolic 80–124; BP diastolic 58–85
[~2022-02-20] VITALS: Ht 180.3 cm; Wt 105.2 kg
[~2022-02-20 07:14] MED LIST changes: +DOXY100T2 PO; +MAGN400T7 PO
[2022-02-20] MEDS ORDERED: NS IV 1000 ML 1,000 ML ONE (07:25)
[2022-02-20] MEDS ORDERED: NS IV 1000 ML 1,000 ML IV SCH (07:30)
[2022-02-20 07:49] LABS: HEMATOCRIT 42 % (40-54); HEMOGLOBIN 14.1 g/dL (13.3-17.7); MEAN CORPUSCULAR HEMOGLOBIN 32 pg (25-34); MEAN CORPUSCULAR HGB CONC 34 g/dL (32-36); MEAN CORPUSCULAR VOLUME 95 fL (80-99); MEAN PLATELET VOLUME 10.8 fL (9.0-12.2); PLATELET COUNT 206 10^3/uL (130-400); WHITE BLOOD COUNT 4.8 10^3/uL (4.3-11.0)
[2022-02-20] MEDS ORDERED: RIVA20TA PO (08:12)
[2022-02-20] MEDS ORDERED: ASPI-999 PO (08:12)
[2022-02-20] MEDS ORDERED: CHOL500061 PO (08:12)
[2022-02-20] MEDS ORDERED: DIGO250T3 PO (08:12)
[2022-02-20] MEDS ORDERED: POTA-177 PO (08:12)
[2022-02-20] MEDS ORDERED: METO-333 PO (08:12)
[2022-02-20] MEDS ORDERED: MAGN400T7 PO (08:12)
[2022-02-20] MEDS ORDERED: DOXY100T2 PO (08:12)
[2022-02-20] MEDS ORDERED: SPIR25TA PO (08:12)
[2022-02-20] MEDS ORDERED: FURO40TA4 PO (08:12)
[2022-02-20 08:15] LABS: INR 1.5 (0.8-1.4); PROTHROMBIN TIME PATIENT 18.3 SEC (12.2-14.7)
[2022-02-20 08:16] LABS: ALBUMIN 3.8 GM/DL (3.2-4.5); BILIRUBIN,TOTAL 0.5 MG/DL (0.1-1.0); CALCIUM 8.5 MG/DL (8.5-10.1); CREATININE SERUM 1.19 MG/DL (0.60-1.30); MAGNESIUM 1.5 MG/DL (1.6-2.4); POTASSIUM 3.8 MMOL/L (3.6-5.0); TOTAL PROTEIN 6.5 GM/DL (6.4-8.2)
[2022-02-20] MEDS ORDERED: MIDAZOLAM 2 MG/2 ML (VERSED) VIAL ONE (08:37)
[2022-02-20] MEDS ORDERED: proPOfol 200 MG/20 ML (DIPRIVAN) VIAL IV ONE (08:37)
--- NOTE | 2022-02-20 09:16 | Anesthesia-General Post-Op ---
MAC Patient Condition Mental Status/LOC: Same as Preop Cardiovascular: Satisfactory Nausea/Vomiting: Absent Respiratory: Satisfactory Pain: Controlled Complications: Absent Post Op Complications Complications None Follow Up Care/Instructions Patient Instructions None needed. Anesthesiology Discharge Order Discharge Order Patient is doing well, no complaints, stable vital signs, no apparent adverse anesthesia problems. No complications reported per nursing. LOREE MORA DO Feb 20, 2022 09:15
--- NOTE | 2022-02-20 18:01 | OPERATIVE REPORT ---
DATE OF SERVICE: 02/20/2022 PREOPERATIVE DIAGNOSIS: Atrial fibrillation. POSTOPERATIVE DIAGNOSIS: Atrial fibrillation. DESCRIPTION OF PROCEDURE: Myocardial injury. DESCRIPTION OF PROCEDURE: This is a 71-year-old man with atrial fibrillation. He has been fully anticoagulated for more than 3 weeks. He has been symptomatic from his atrial fibrillation. He underwent external electrical cardioversion today. We gave 120 joules of biphasic synchronized shock through external patches. This resulted in transient junctional rhythm and bradycardia and then he resumed atrial fibrillation. We did not attempt further shocks because of the bradycardic response, which is likely due to digoxin therapy. His digoxin level is 1.9. We have advised discontinuation of digoxin and follow up at our office in 2 to 3 days and we will then decide if external electrocardioversion should be repeated. He has already been referred to the electrophysiologic service as well. Oral anticoagulation is being continued without any interruptions. Job ID: [id number] DocumentID: [id number] Dictated Date: 02/20/2022 10:22:17 Gum Cook Date: 02/20/2022 17:59:00 Dictated By: SILVIA PARRISH MD; BRADLY; FACP; FACC;
== END 2022-02-20 10:44 | disposition home or self-care (01) ==
LOC: CATH 07:14
PROVIDERS: ATTEND Internal Medicine Cardiovascular Disease
DX: I48.0 Paroxysmal atrial fibrillation (principal); Z87.891 Personal history of nicotine dependence; E66.9 Obesity, unspecified; Z68.32 Body mass index [BMI] 32.0-32.9, adult; I50.41 Acute combined systolic (congestive) and diastolic (congestive) heart failure; I35.0 Nonrheumatic aortic (valve) stenosis; I10 Essential (primary) hypertension; E11.9 Type 2 diabetes mellitus without complications; Z79.899 Other long term (current) drug therapy; Z79.84 Long term (current) use of oral hypoglycemic drugs; Z79.01 Long term (current) use of anticoagulants
CPT/HCPCS: 36415; 80053; 80061; 80162; 83735; 84443; 85027; 85610; 85730; 87081; 92960; 93005

== ENCOUNTER → 2022-03-03 | Outpatient (CLI) | payer MEDICARE, OTHER ==
[~2022-03-03] MED LIST changes: +ASPI-999 PO; +CHOL500061 PO; +DIGO250T3 PO; +METO-333 PO; +POTA-177 PO; +RIVA20TA PO; +SPIR25TA PO
[2022-03-03 09:34] LABS: HEMATOCRIT 49 % (40-54); HEMOGLOBIN 16.5 g/dL (13.3-17.7); MEAN CORPUSCULAR HEMOGLOBIN 32 pg (25-34); MEAN CORPUSCULAR HGB CONC 34 g/dL (32-36); MEAN CORPUSCULAR VOLUME 94 fL (80-99); MEAN PLATELET VOLUME 10.6 fL (9.0-12.2); PLATELET COUNT 222 10^3/uL (130-400); WHITE BLOOD COUNT 7.2 10^3/uL (4.3-11.0)
[2022-03-03 10:04] LABS: CALCIUM 9.5 MG/DL (8.5-10.1); CREATININE SERUM 1.24 MG/DL (0.60-1.30); MAGNESIUM 1.5 MG/DL (1.6-2.4); POTASSIUM 4.1 MMOL/L (3.6-5.0)
== END ==
LOC: LAB 09:19
PROVIDERS: ATTEND Internal Medicine Cardiovascular Disease
DX: I35.0 Nonrheumatic aortic (valve) stenosis (principal); I65.23 Occlusion and stenosis of bilateral carotid arteries; I11.9 Hypertensive heart disease without heart failure; G47.33 Obstructive sleep apnea (adult) (pediatric); I35.1 Nonrheumatic aortic (valve) insufficiency; I48.0 Paroxysmal atrial fibrillation; I48.19 Other persistent atrial fibrillation
CPT/HCPCS: 36415; 80048; 83735; 83880; 85027